=== PATIENT | male | born 1935 | race Caucasian/White ===

== ENCOUNTER → 2018-03-28 10:32 | Outpatient (CLI) | payer MEDICARE, OTHER, SELFPAY ==
[2018-03-28 11:48] LABS: Add Manual Diff / Slide Review NO; Basophils Percent Auto 1.2 % (0-2); Eosinophils Percent Auto 10.3 % (2-4); Hematocrit 41.8 % (41-53); Hemoglobin 14.1 g/dL (13.5-17.5); Lymphocytes Percent Auto 26.3 % (25-40); Mean Corpuscular HGB Conc 33.7 % (30-36); Mean Corpuscular Hemoglobin 29.8 PG (26-34); Mean Corpuscular Volume 88.5 fL (80-100); Monocytes Percent Auto 8.2 % (3-14); Neutrophils Absolute Auto 3800 /uL (3000-5900); Platelet Count 232 X10^3/uL (150-400); Red Blood Cell Count 4.72 X10^6/uL (4.5-5.9); Red Cell Distribution Width 16.5 % (11.6-14.8); White Blood Cell Count 7.1 X10^3/uL (4.5-11.0)
[2018-03-28 12:10] LABS: BUN Creatinine Ratio 21.1 (6-22); Blood Urea Nitrogen 19 mg/dL (9-20); Calcium 9.4 mg/dL (8.4-10.2); Carbon Dioxide 29 mmol/L (22-32); Chloride 103 mmol/L (98-107); Estimated Glomerular Filt Rate > 60.0 mL/min (>60); Glucose 94 mg/dL (80-110); HEMOLYSIS < 15 (0-50); Potassium 4.1 mmol/L (3.4-5.1); Sodium 141 mmol/L (137-145)
== END ==
PROVIDERS: PCP Family Medicine; Visit Provider Physician Assistant
DX: Z01.818 Encounter for other preprocedural examination (principal); B44.9 Aspergillosis, unspecified; H26.9 Unspecified cataract; J44.9 Chronic obstructive pulmonary disease, unspecified
CPT/HCPCS: 36415; 80048; 85025; 93005; 93010

== ENCOUNTER 2018-04-10 06:55 | Day surgery (SDC) | payer MEDICARE, OTHER, SELFPAY ==
[2018-04-10 07:15] VITALS: BP 142/85; PULSE 79; RESP 22; TEMP 36.4; BMI 25.9
[2018-04-10] MEDS: PROPARACAINE 0.5% OPHTH SOL 2 DROPS EYE-OP (07:23)
[2018-04-10] MEDS: CATARACT EYE COMPOUND (10 DROPS/SYRINGE) 3 DROPS EYE-OP (07:30)
--- NOTE | 2018-04-10 07:36 | PM.PREOP ---
Pre-operative Note Interval Note Pre-op Check: Yes History & Physical Reviewed by Physician Changes: No
--- NOTE | 2018-04-10 07:38 | PM.OP.1 ---
Operative Date/Time/Diagnoses Date of procedure: 04/10/18 Time of procedure: 07:39 Procedure & Clinicians Procedure: Date of service: April 10, 2018 Preoperative diagnoses: 1. Right nuclear sclerotic and cortical with posterior subcapsular changes. 2. Aspergillosis. 3. Asthma Postop diagnosis : Status post cataract surgery removal by phacoemulsification with posterior chamber intraocular lens implant. Procedure: Phacoemulsification with posterior chamber intraocular lens implant Surgeon: Sarah Townsend MD Complications: None. Specimen: None Implant:+18.5 Blood loss: None Anesthesia: Retrobulbar with monitored standby Anesthesiologist: Juan A Alford M.D. Description of procedure: Patient is an 82 year old male year old with decreased vision due to cataract which is affecting activities of daily living. Jhonathan wants surgery to improve vision. He was taken to the operating room and given IV sedation. A retrobulbar block insert consisting of 6 cc of 2% xylocaine without epinephrine mixed half and half with 0.5% Marcaine with 1 cc of hyaluronidase added is placed between the medial and lateral 1/3 of the inferior orbital rim. Lid akinesia is obtain with 1% xylocaine with epinephrine infiltrated along the lid margin. The eye is manually massaged for 30 sec, prepped using Betadine solution, and draped in the usual sterile fashion. Temporal approach was made, a 1 mm side-port incision was made at the 7:30 position. Phenylephrine 1.5% mixed with 1% xylocaine 0.2 cc was placed into the anterior chamber. Viscoat followed by Healon was then placed. A 2.6 mm clear incision with a 2.6 mm blade was placed at the 170 degree meridian. A 360 degree capsulorrhexis style capsulotomy was then performed with a cystitome needle on a Healon. Hydrodelineation and hydrodissection were performed. The phacoemulsification unit is introduced, and sculpting notice used to groove the central lens. It is then removed in chopping mode. Epi nucleus is removed with epinuclear mode and irrigation aspiration was used to remove the peripheral cortex. The posterior capsule is polished. The intraocular lens is selected, inspected, power confirmed, and placed in the posterior chamber. The pupil was constricted. The wound was stromally hydrated and tested for leaks, there was none and it was left sutureless. Vigamox 0.1 cc was placed into the anterior chamber. Kenalog 0.2 cc was placed in the superior subconjunctival space. A drop of antibiotic and was placed and the eye was patched and shielded. The patient was stable and returned to the recovery room in excellent condition. Dictated by: Sarah Townsend MD Copy to: [facility] Same procedure as scheduled: Yes
[2018-04-10] MEDS: CARBACHOL 1.5 ML VIAL INJ (08:28)
[2018-04-10] MEDS: BALANCED SALT IRRIG SOLN NO.2 15 ML IRRIG.SOLN IRR (08:28)
[2018-04-10] MEDS: CHONDROIDTIN/SOD HYALURONATE 1.05 ML SYRINGE INTRAOCULA (08:29)
[2018-04-10] MEDS: HYALURONATE SODIUM 10 MG/ML SYRINGE INJ (08:30)
[2018-04-10] MEDS: LIDOCAINE 1% W/EPI INJ 20 ML INJ (08:30)
[2018-04-10] MEDS: MOXIFLOXACIN OPHTH DROPS 3 ML BOTTLE 2 DROPS INJ (08:31)
[2018-04-10] MEDS: NEOMYCIN/POLY/DEX OPHTH OINT 1 APPLIC EYE-RIGHT (08:32)
[2018-04-10] MEDS: OFLOXACIN 0.3% OPHTH 5 ML 2 DROPS EYE-RIGHT (08:33)
[2018-04-10] MEDS: PHENYLEPHRINE/LIDOCAINE 3ML VIAL (OR) EYE-OP (08:34)
[2018-04-10] MEDS: TRIAMCINOLONE 50 MG/5 ML VIAL INJ (08:35)
[2018-04-10] MEDS: LIDOCAINE 2% 4 ML, BUPIVACAINE 0.5% (PF) 4 ML, HYALURONIDASE 150 UNIT INJ (08:36)
[2018-04-10] MEDS: BALANCED SALT IRRIG SOLN NO.2 500 ML, EPINEPHrine 1 MG IRR (08:36)
[2018-04-10 09:03] VITALS: BP 125/77; PULSE 68; RESP 16; TEMP 36.7; O2SAT 94
--- NOTE | 2018-04-10 12:29 | PM.DS.1 ---
History of Present Illness Chief complaint: 21756 RIGHT CATARACT EXTRACTION Discharge Providers Primary care physician: Cassandra Bravo DO Discharge provider: Sarah Townsend MD Exam Vital Signs (past 8 hours): - 04/10/18 07:15 04/10/18 09:03 Temperature 97.5 F L 98.1 F Pulse Rate 79 68 Respiratory Rate 22 16 Blood Pressure 142/85 H 125/77 H Pulse Oximetry 94 Oxygen Delivery Method Room Air Discharge Plan Discharge Plan Patient Disposition: Home Discharge comment: Follow post operative instruction sheet. Discharge Med Rec/Prescriptions Prescriptions: No Action Duoneb aerosol 3 ml INHALATION QID RF: 0 fluticasone-salmeterol [Advair Diskus] 500 MCG/50 MCG blister with device 1 puff INH BIDRT Qty: 0 RF: 0 montelukast [Singulair] 10 MG tablet 10 mg PO QDAY Qty: 0 RF: 0 Discharge Orders: Discharge (Order); Ordered 04/10/18 Ordered By: Sarah Townsend Visit Report/Discharge Packet Stand Alone Forms: Cataract Discharge Kristian, Surgery Discharge Discharge Data Primary Care Provider: Cassandra Bravo Attending Provider: Sarah Townsend Discharges patient from system. Discharge Date/Time: 04/10/18 09:08
== END 2018-04-10 09:08 | disposition home or self-care (01) ==
PROVIDERS: Family Provider Family Medicine; PCP Family Medicine; Visit Provider Ophthalmology
DX: H25.11 Age-related nuclear cataract, right eye (principal); J45.909 Unspecified asthma, uncomplicated; B44.9 Aspergillosis, unspecified
CPT/HCPCS: J0171; J2250; J2704; J3010; J3301; J3470

== ENCOUNTER 2018-04-24 12:54 | Day surgery (SDC) | payer MEDICARE, OTHER, SELFPAY ==
--- NOTE | 2018-04-24 08:31 | PM.PREOP ---
Pre-operative Note Interval Note Pre-op Check: Yes History & Physical Reviewed by Physician Changes: No
[2018-04-24] MEDS: PROPARACAINE 0.5% OPHTH SOL 2 DROPS EYE-OP ×2 (13:33→14:47)
[2018-04-24 13:35] VITALS: BMI 55.3
[2018-04-24 13:39] VITALS: BP 133/78; PULSE 82; RESP 16; TEMP 36.5; O2SAT 94
[2018-04-24] MEDS: CATARACT EYE COMPOUND (10 DROPS/SYRINGE) 3 DROPS EYE-OP (14:02)
[2018-04-24] MEDS: LIDOCAINE 1% W/EPI INJ 20 ML INJ (14:53)
[2018-04-24] MEDS: LIDOCAINE 2% 4 ML, BUPIVACAINE 0.5% (PF) 4 ML, HYALURONIDASE 150 UNIT INJ (14:53)
[2018-04-24] MEDS: BALANCED SALT IRRIG SOLN NO.2 15 ML IRRIG.SOLN IRR (15:13)
[2018-04-24] MEDS: HYALURONATE SODIUM 10 MG/ML SYRINGE INJ (15:14)
[2018-04-24] MEDS: CHONDROIDTIN/SOD HYALURONATE 1.05 ML SYRINGE INTRAOCULA (15:14)
[2018-04-24] MEDS: NEOMYCIN/POLY/DEX OPHTH OINT 1 APPLIC EYE-LEFT (15:15)
[2018-04-24] MEDS: MOXIFLOXACIN OPHTH DROPS 3 ML BOTTLE 2 DROPS INJ (15:15)
[2018-04-24] MEDS: OFLOXACIN 0.3% OPHTH 5 ML 2 DROPS EYE-LEFT (15:16)
[2018-04-24] MEDS: PHENYLEPHRINE/LIDOCAINE VIAL (OR) 0.2 ML EYE-OP (15:17)
[2018-04-24] MEDS: TRIAMCINOLONE 50 MG/5 ML VIAL INJ (15:17)
[2018-04-24] MEDS: BALANCED SALT IRRIG SOLN NO.2 500 ML, EPINEPHrine 1 MG IRR (15:18)
[2018-04-24 15:46] VITALS: BP 126/76; PULSE 72; RESP 16; TEMP 35.9; O2SAT 95
--- NOTE | 2018-04-24 17:12 | P.OP_ITS ---
Operative Date/Time/Diagnoses Date of procedure: 04/24/18 Time of procedure: 14:00 Procedure & Clinicians Procedure: Date of service:04/24/2018 Preoperative diagnoses: 1. Nuclear sclerotic and cortical Cataract. 2. Aspergelosis now resolved. Post operative diagnoses: 1. Cataract removed with phacoemulsification with posterior chamber intraocular lens toric style. Procedure: Phacoemulsification with posterior chamber toric intraocular lens implant Surgeon: Sarah Townsend MD Complications:none Specimen: None Implant:[id number]+19.0, axis 40 degrees. Blood loss: None Anesthesia: Retrobulbar with monitored standby Anesthesiologist: Juan A Ramires M.D. Description of procedure: Patient is an 82 year old male with decreased vision due to cataract which is affecting activities of daily living. He wants surgery to improve vision. He has taken to the operating room and given IV sedation. topical proparacaine drops were placed in indelible ink spaulding were placed at the 90 and 180 degree meridian. A retrobulbar block insert consisting of 6 cc of 2% xylocaine without epinephrine mixed half and half with 0.5% Marcaine with 1 cc of hyaluronidase added is placed between the medial and lateral 1/3 of the inferior orbital rim. Lid akinesia is obtain with 1% xylocaine with epinephrine infiltrated along the lid margin. The eye is manually massaged for 30 sec, prepped using Betadine solution, and draped in the usual sterile fashion. Temporal approach was made, a 1 mm side-port incision was made at the 12 oclock meridian. Phenylephrine 1.5% mixed with 1% xylocaine 0.2 cc was placed into the anterior chamber. Viscoat followed by Melva was then placed. A 2.6 mm clear incision with a 2.6 mm blade was placed at the 3 oclock meridian. A 360 degree capsulorrhexis style capsulotomy was then performed with a cystitome needle on a Healon. Hydrodelineation and hydrodissection were performed. The phacoemulsification unit is introduced, and sculpting notice used to groove the central lens. It is then removed in chopping mode. Epi nucleus is removed with epinuclear mode and irrigation aspiration was used to remove the peripheral cortex. The posterior capsule is polished. The intraocular lens is selected, inspected, power confirmed, and placed in the posterior chamber at the 40 degree meridian.. The pupil was not constricted. The wound was stromally hydrated and tested for leaks, there was none and was left sutureless. Vigamox 0.1 cc was placed into the anterior chamber. Kenalog 0.2 cc was placed in the superior subconjunctival space. A drop of antibiotic and was placed and the eye was patched and shielded. The patient was stable and returned to the recovery room in excellent condition. Dictated by: Sarah Townsend MD Copy to: [facility]
== END 2018-04-24 16:00 | disposition home or self-care (01) ==
LOC: OR 12:57
PROVIDERS: PCP Family Medicine; Visit Provider Ophthalmology
DX: H25.12 Age-related nuclear cataract, left eye (principal); J45.909 Unspecified asthma, uncomplicated
CPT/HCPCS: J0171; J2250; J2704; J3010; J3301; J3470; V2787

== ENCOUNTER → 2018-05-28 08:45 | Outpatient (CLI) | payer MEDICARE, OTHER, SELFPAY ==
[2018-05-30 07:21] LABS: Immunoglobulin E 2360 kU/L (< 115)
== END ==
PROVIDERS: PCP Family Medicine; Visit Provider Internal Medicine Critical Care Medicine
DX: B44.81 Allergic bronchopulmonary aspergillosis (principal)
CPT/HCPCS: 36415; 82785

== ENCOUNTER → 2018-07-22 14:32 | Outpatient (CLI) | payer MEDICARE, OTHER, SELFPAY ==
[2018-07-22 16:17] LABS: Thyroid Stimulating Hormone 1.63 uIU/mL (0.47-4.68)
== END ==
PROVIDERS: PCP Family Medicine; Visit Provider Family Medicine
DX: L65.9 Nonscarring hair loss, unspecified (principal); R21 Rash and other nonspecific skin eruption
CPT/HCPCS: 36415; 84443

== ENCOUNTER → 2018-09-12 10:16 | Outpatient (CLI) | payer MEDICARE, OTHER, SELFPAY ==
[2018-09-12 11:12] LABS: Add Manual Diff / Slide Review NO; Basophils Absolute Auto 100 /uL (0-100); Basophils Percent Auto 1.2 % (0-2); Eosinophils Absolute Auto 300 /uL (0-450); Eosinophils Percent Auto 5.1 % (2-4); Hematocrit 48.3 % (41-53); Lymphocytes Absolute Auto 1700 /uL (1100-4500); Lymphocytes Percent Auto 25.6 % (25-40); Mean Corpuscular HGB Conc 33.2 % (30-36); Mean Corpuscular Hemoglobin 29.8 PG (26-34); Mean Corpuscular Volume 89.8 fL (80-100); Monocytes Absolute Auto 500 /uL (0-900); Monocytes Percent Auto 8.1 % (3-14); Neutrophils Absolute Auto 4000 /uL (1500-7000); Platelet Count 241 X10^3/uL (150-400); Red Blood Cell Count 5.38 X10^6/uL (4.5-5.9); Red Cell Distribution Width 14.6 % (11.6-14.8); White Blood Cell Count 6.7 X10^3/uL (4.5-11.0)
[2018-09-12 11:44] LABS: Iron 118 ug/dL (49-181)
[2018-09-12 11:46] LABS: Alanine Aminotransferase 32 IU/L (21-72); Albumin 4.6 g/dL (3.5-5.0); Albumin Globulin Ratio 1.7 (1.0-2.8); Alkaline Phosphatase 49 U/L (38-126); Aspartate Aminotransferase 27 IU/L (17-59); BUN Creatinine Ratio 24.4 (6-22); Bilirubin Total 0.5 mg/dL (0.2-1.3); Blood Urea Nitrogen 22 mg/dL (9-20); Calcium 9.9 mg/dL (8.4-10.2); Carbon Dioxide 24 mmol/L (22-32); Chloride 104 mmol/L (98-107); Estimated Glomerular Filt Rate > 60.0 mL/min (>60); Globulin 2.7 g/dL (1.7-4.1); Glucose 97 mg/dL (80-110); HEMOLYSIS < 15 (0-50); Potassium 4.2 mmol/L (3.4-5.1); Sodium 139 mmol/L (137-145); Total Protein 7.3 g/dL (6.3-8.2)
[2018-09-12 12:21] LABS: Ferritin 67.2 ng/mL (17.9-464)
[2018-09-17 08:02] LABS: ANA Screen NEGATIVE (Negative); DNA Antibody Crithidia IFA NEGATIVE (Negative); Rheumatoid Factor <14 IU/mL; Sjogren Antiboday SS-A <1.0 NEG AI (<1.0 NEGATIVE); Sjogren Antiboday SS-B <1.0 NEG AI (<1.0 NEGATIVE); Sm Antibody <1.0 NEG AI (<1.0 NEGATIVE); Sm/RNP Antibody <1.0 NEG AI (<1.0 NEGATIVE)
== END ==
PROVIDERS: PCP Family Medicine; Visit Provider Physician Assistant
DX: L65.9 Nonscarring hair loss, unspecified (principal); I65.9 Occlusion and stenosis of unspecified precerebral artery
CPT/HCPCS: 36415; 80053; 82728; 83540; 85025; 86038; 86430

== ENCOUNTER → 2018-12-12 09:27 | Outpatient (CLI) | payer MEDICARE, OTHER, SELFPAY ==
[2018-12-16 13:43] LABS: Immunoglobulin E 2787 kU/L (< 115)
== END ==
PROVIDERS: PCP Family Medicine; Visit Provider Internal Medicine Pulmonary Disease
DX: B44.81 Allergic bronchopulmonary aspergillosis (principal)
CPT/HCPCS: 36415; 82785

== ENCOUNTER → 2018-12-26 09:31 | Outpatient (CLI) | payer MEDICARE, OTHER, SELFPAY ==
[2018-12-26 11:52] LABS: Prostate Specific Antigen 0.139 ng/mL (0.10-4.00)
== END ==
PROVIDERS: PCP Family Medicine; Visit Provider Urology
DX: Z85.46 Personal history of malignant neoplasm of prostate (principal)
CPT/HCPCS: 36415; 84153

== ENCOUNTER → 2019-01-02 09:25 | Outpatient (CLI) | payer MEDICARE, OTHER, SELFPAY ==
--- NOTE | 2019-01-02 | DI.RAD.S_ITS ---
PROCEDURE: XR ABDOMEN 1V INDICATIONS: KIDNEY STONE TECHNIQUE: One view of the abdomen acquired. COMPARISON: [facility], , ABDOMEN 1 VIEW, 10/11/2006, 11:43. FINDINGS: Surgical changes and devices: Multiple surgical clips are seen in right upper quadrant abdomen. Surgical clips also seen in bilateral pelvic region. Bowel: Bowel gas pattern is normal. Mild fecal stasis throughout the colon is seen. Soft tissues: Multiple calcifications are seen scattered in the region of mid to lower pole left kidney measures up to 6 mm in size in midpole of left kidney and 9 mm in size in lower pole of left kidney. No gross right-sided renal calcification is seen. 12 x 6 mm calcification is seen projecting in the region of right iliac crest a right lower quadrant. Small round calcifications are seen in bilateral lower pelvis unchanged from prior study and likely represent phleboliths. Visualized solid organ contours appear normal in size. Bones: No suspicious bony lesions. Moderate levoscoliosis centered at L2 level is seen. IMPRESSION: Multiple left-sided renal calculi. No definite right renal calcification. 12 x 6 mm oval calcification projecting in the region of the right iliac crest and is too lateral to represent renal or ureteral calcification. Phleboliths in lower pelvis. Dictated by: Angel Barksdale M.D. on 01/02/2019 at 10:29 Approved by: Angel Barksdale M.D. on 01/02/2019 at 10:32
== END ==
PROVIDERS: PCP Family Medicine; Visit Provider Urology
DX: N20.0 Calculus of kidney (principal)
CPT/HCPCS: 74018

== ENCOUNTER → 2019-07-16 09:57 | Outpatient (CLI) | payer MEDICARE, OTHER, SELFPAY ==
[2019-07-19 10:14] LABS: Immunoglobulin E 2494 kU/L (< 115)
== END ==
PROVIDERS: Family Provider Family Medicine; PCP Family Medicine; Visit Provider Internal Medicine Pulmonary Disease
DX: B44.81 Allergic bronchopulmonary aspergillosis (principal)
CPT/HCPCS: 36415; 82785

== ENCOUNTER → 2019-09-22 10:50 | Outpatient (CLI) | payer MEDICARE, OTHER, SELFPAY ==
[2019-09-22 11:53] LABS: Prostate Specific Antigen 0.153 ng/mL (0.10-4.00)
== END ==
PROVIDERS: Family Provider Family Medicine; PCP Family Medicine; Referring Provider Urology; Visit Provider Urology
DX: Z85.46 Personal history of malignant neoplasm of prostate (principal)
CPT/HCPCS: 36415; 84153

== ENCOUNTER → 2020-01-14 09:23 | Outpatient (CLI) | payer MEDICARE, OTHER, SELFPAY ==
[2020-01-17 20:24] LABS: Immunoglobulin E 2029 IU/mL (6-495)
== END ==
PROVIDERS: Family Provider Family Medicine; PCP Family Medicine; Referring Provider Internal Medicine Pulmonary Disease; Visit Provider Internal Medicine Pulmonary Disease
DX: B44.81 Allergic bronchopulmonary aspergillosis (principal)
CPT/HCPCS: 36415; 82785

== ENCOUNTER → 2020-03-15 12:35 | Outpatient (CLI) | payer MEDICARE, OTHER, SELFPAY ==
[2020-03-15 13:57] LABS: Prostate Specific Antigen < 0.064 ng/mL (0.10-4.00)
== END ==
PROVIDERS: Family Provider Family Medicine; PCP Physician Assistant; Referring Provider Urology; Visit Provider Urology
DX: Z85.46 Personal history of malignant neoplasm of prostate (principal)
CPT/HCPCS: 36415; 84153

== ENCOUNTER → 2020-11-25 15:29 | Outpatient (CLI) | payer MEDICARE, OTHER, SELFPAY ==
[2020-11-29 06:57] LABS: Immunoglobulin E 3038 IU/mL (6-495)
== END ==
PROVIDERS: Family Provider Family Medicine; PCP Physician Assistant; Referring Provider Internal Medicine Pulmonary Disease; Visit Provider Internal Medicine Pulmonary Disease
DX: B44.81 Allergic bronchopulmonary aspergillosis (principal)
CPT/HCPCS: 36415; 82785

== ENCOUNTER → 2021-05-31 09:03 | Outpatient (CLI) | payer MEDICARE, OTHER, SELFPAY | PROVIDERS: Family Provider Family Medicine; PCP Physician Assistant; Referring Provider Urology; Visit Provider Urology | DX: Z85.46 Personal history of malignant neoplasm of prostate (principal) | CPT/HCPCS: 36415; 84153 ==

== ENCOUNTER → 2021-10-11 09:04 | Outpatient (CLI) | payer MEDICARE, OTHER, SELFPAY ==
--- NOTE | 2021-10-11 | DI.ECHO.S_ITS ---
[place] [facility]---------+ [facility] +---------+ : : [address] : : : : [id number] : : : : Phone: [phone]+ Echocardiogram Report + + :Name: GIANNA DICK R Study Date: 10/11/2021 Height: 69 in : :[facility] ReadingLocation: Weight: 165 lb : : Gender: Male BSA: 1.9 m2 : :: 1935 Age: 85 yrs BP: 158/97 mmHg: :Reason For Study: LOCALIZED EDMEA : :Ordering Physician: JACOB, : :GIANNA Performed By: Tawanna Huang : :Referring: GIANNA JAMES : + + Interpretation Summary The left ventricle is normal in size and wall thickness. The ejection fraction is estimated to be 60-65%. Diastolic dysfuncitn, grade I The left atrium is severely dilated. The right ventricle is normal in size and function. The IVC is of normal diameter and collapses greater than 50% with a sniff. This suggests a low right atrial pressure of 3 mm Hg. No significant valvular disease. No prior studies available for comparison. Procedure: A two-dimensional transthoracic echocardiogram with color flow and Doppler was performed. The study quality was technically good. There is no prior echocardiogram noted for this patient. The patient was in sinus rhythm with heart rates between 70-85 bpm during the exam. Left Ventricle: The left ventricle is normal in size and wall thickness. The ejection fraction is estimated to be 60-65%. Left ventricular wall motion is normal. Diastolic dysfuncitn, grade I. Right Ventricle: The right ventricle is normal in size and function. Atria: The left atrium is severely dilated. The right atrium is mildly dilated. There is no Doppler evidence for an interatrial shunt. Mitral Valve: The mitral valve is normal in structure and function. There is trace mitral regurgitation. Aortic Valve: The aortic valve is trileaflet. The aortic valve opens well. There is no aortic valve stenosis. No aortic regurgitation is present. Tricuspid Valve: The tricuspid valve is normal in structure and function. There is trace tricuspid regurgitation. Pulmonic Valve: The pulmonic valve leaflets are thin and pliable; valve motion is normal. There is trace pulmonic regurgitation. Great Vessels: The aortic root is normal size. The dimensions of the ascending aorta are normal. The IVC is of normal diameter and collapses greater than 50% with a sniff. This suggests a low right atrial pressure of 3 mm Hg. Pericardium/ Pleura There is no pericardial effusion. There is no pleural effusion. MMode/2D Measurements & Calculations LVIDd: 5.1 cm LVOT diam: 2.2 cm LVIDs: 3.5 cm Ao root diam: 3.8 cm FS: 32.4 % asc Aorta Diam: 3.3 cm IVSd: 0.93 cm Ao Arch Diam (Prox Trans): 2.9 cm LVPWd: 0.93 cm LV magana. diameter/BSA (cm/m^2): 2.7 LV sys. diameter/BSA (cm/m^2): 1.8 LA A2 area: 28.3 cm2 RA long axis: 6.0 cm LA A4 area: 22.4 cm2 RA area: 22.8 cm2 LA length (vol): 5.9 cm RA vol: 73.2 ml LA vol: 90.4 ml RA : 38.4 ml/m2 LA vol index: 47.5 ml/m2 IVC diam: 1.8 cm RVD1 (basal): 3.5 cm RVD2 (mid): 3.6 cm TAPSE: 2.2 cm Doppler Measurements & Calculations Ao V2 max: 137.0 cm/sec LVOT Max Mukesh: 110.8 cm/sec Ao V2 mean: 97.5 cm/sec LV V1 max P.9 mmHg Ao max P.5 mmHg LV V1 VTI: 25.9 cm Ao mean P.1 mmHg ANNAMARIA(I,D): 3.2 cm2 Ao V2 VTI: 31.9 cm ANNAMARIA(V,D): 3.2 cm2 sev ratio: 0.81 ANNAMARIA indexed to BSA (cm^2/m^2): 1.7 MV E max mukesh: 75.0 cm/sec PA V2 max: 77.2 cm/sec MV A max mukesh: 106.8 cm/sec PA V2 mean: 51.4 cm/sec MV E/A: 0.70 PA mean P.2 mmHg Med Peak E' Mukesh: 5.2 cm/sec PA pr(Accel): 22.5 mmHg E/E' med: 14.5 Lat Peak E' Mukesh: 8.9 cm/sec E/E' lat: 8.4 E/e' average: 11.5 MV dec time: 0.18 sec [facility] 101.5 ml Reading Physician:NAYLA
== END ==
PROVIDERS: Family Provider Family Medicine; PCP Physician Assistant; Referring Provider Physician Assistant; Visit Provider Internal Medicine
DX: R60.0 Localized edema (principal)
CPT/HCPCS: 93306

== ENCOUNTER → 2021-11-24 08:45 | Outpatient (CLI) | payer MEDICARE, OTHER, SELFPAY ==
[2021-11-24 10:35] LABS: BUN Creatinine Ratio 23.5 (6-22); Blood Urea Nitrogen 23 mg/dL (9-20); Carbon Dioxide 29 mmol/L (22-32); Chloride 102 mmol/L (98-107); Estimated Glomerular Filt Rate > 60.0 mL/min (>60); Glucose 96 mg/dL (80-110); HEMOLYSIS < 15 (0-50); Potassium 3.9 mmol/L (3.4-5.1); Sodium 139 mmol/L (137-145)
[2021-11-27 16:09] LABS: Immunoglobulin E 2581 IU/mL (6-495)
== END ==
PROVIDERS: Family Provider Family Medicine; PCP Physician Assistant; Referring Provider Internal Medicine Cardiovascular Disease; Visit Provider Internal Medicine Cardiovascular Disease
DX: I10 Essential (primary) hypertension (principal); B44.81 Allergic bronchopulmonary aspergillosis
CPT/HCPCS: 36415; 80048; 82785

== ENCOUNTER → 2022-04-06 14:34 | Outpatient (CLI) | payer MEDICARE, OTHER, SELFPAY ==
--- NOTE | 2022-04-06 14:38 | DI.RAD.S_ITS ---
PROCEDURE: XR ABDOMEN 1V INDICATIONS: Kidney stones TECHNIQUE: One view of the abdomen acquired. COMPARISON: [facility], CR, XR ABDOMEN 1V, 01/02/2019, 9:32. FINDINGS: Surgical changes and devices: Right upper quadrant surgical clips. Lower pelvic surgical clips. Bowel: Bowel gas pattern is normal. Soft tissues: No suspicious abdominal calcifications. Visualized solid organ contours appear normal in size. Multiple calcifications again seen projected over the left kidney, largest measuring roughly 1.1 cm. No definite calcifications projected over the left kidney. Chronic right lower quadrant calcification unchanged. Multiple pelvic phleboliths. Bones: No suspicious bony lesions. IMPRESSION: Multiple calcifications again seen projected over the left kidney, largest measuring 1.1 cm. Dictated by: Shiva Sanchez [facility] Interpreted: Raquel Nava MD on 04/06/2022 at 15:35 Transcribed by: RYLAND on 04/06/2022 at 15:36 Approved by: Raquel Nava M.D. on 04/06/2022 at 17:40
== END ==
PROVIDERS: Family Provider Family Medicine; PCP Physician Assistant; Referring Provider Urology; Visit Provider Urology
DX: N20.0 Calculus of kidney (principal)
CPT/HCPCS: 74018

== ENCOUNTER → 2023-05-16 13:25 | Outpatient (CLI) | payer MEDICARE, OTHER, SELFPAY ==
[2023-05-16 14:10] LABS: Alanine Aminotransferase 20 IU/L (<50); Albumin 3.6 g/dL (3.5-5.0); Albumin Globulin Ratio 1.2 (1.0-2.8); Alkaline Phosphatase 59 U/L (38-126); Aspartate Aminotransferase 41 IU/L (17-59); Bilirubin Total 0.4 mg/dL (0.2-1.3); Blood Urea Nitrogen 17 mg/dL (9-20); Calcium 8.4 mg/dL (8.4-10.2); Carbon Dioxide 30 mmol/L (22-32); Chloride 101 mmol/L (98-107); Estimated Glomerular Filt Rate > 60 mL/min (>60); Globulin 2.9 g/dL (1.7-4.1); Glucose 101 mg/dL (80-110); HEMOLYSIS 16 (0-50); Potassium 3.3 mmol/L (3.4-5.1); Sodium 137 mmol/L (137-145); Total Protein 6.5 g/dL (6.3-8.2)
== END ==
PROVIDERS: Family Provider Family Medicine; PCP Physician Assistant; Visit Provider Nurse Practitioner Family
DX: U07.1 COVID-19 (principal)
CPT/HCPCS: 80053

== ENCOUNTER → 2023-06-14 07:44 | Outpatient (CLI) | payer MEDICARE, OTHER, SELFPAY | PROVIDERS: Referring Provider Anesthesiology; Visit Provider Anesthesiology | DX: B44.81 Allergic bronchopulmonary aspergillosis (principal); J98.8 Other specified respiratory disorders | CPT/HCPCS: 94010; 94618; 94729 ==

== ENCOUNTER 2024-01-12 17:39 | Inpatient (IN) | payer MEDICARE, OTHER, SELFPAY ==
[2024-01-12] VITALS (15 sets, daily range): BP systolic 122–162; BP diastolic 59–89; PULSE 87–113; RESP 16–40; TEMP 36.4–36.9; O2SAT 88–93; BMI 24.3
--- NOTE | 2024-01-12 17:53 | DI.RAD.S_ITS ---
PROCEDURE: XR CHEST 1V INDICATIONS: Shortness of breath TECHNIQUE: One view of the chest was acquired. COMPARISON: [facility], CHEST 2 VIEW, 03/14/2017, 13:14. [facility], CHEST 2 VIEW, 07/23/2012, 11:05. FINDINGS: Surgical changes and devices: None. Lungs and pleura: No focal pulmonary consolidations. Bullous changes within the right lower lung field. Prominent interstitial markings throughout and scarring at the bilateral lung bases, likely emphysematous or fibrotic changes.. No pleural effusions or pneumothorax. Mediastinum: Mediastinal contours appear normal. Heart size is normal. Bones and chest wall: No suspicious bony lesions. Overlying soft tissues appear unremarkable. IMPRESSION: No focal pulmonary consolidations. Findings concerning for COPD. Bullous changes at the right base. Dictated by: Valentino Jacques M.D. on 01/12/2024 at 17:22 Approved by: Valentino Jacques M.D. on 01/12/2024 at 17:24
[2024-01-12] MEDS: ALBUTEROL/IPRATROPIUM 3 ML AMPUL INH ×2 (18:00→22:10)
--- NOTE | 2024-01-12 18:01 | ED_ITS ---
HPI - SOB/Dyspnea General Chief Complaint: Shortness of Breath/Dyspnea Stated Complaint: Covid t-7 Time Seen by Provider: 01/12/24 17:52 Source: patient, RN notes reviewed and old records reviewed Mode of arrival: Ambulatory Limitations: no limitations History of Present Illness HPI Narrative: 88-year-old male with history of COPD, allergic bronchopulmonary aspergillosis, dyslipidemia, prior prostate cancer who presents with complaint of subjective fevers, fatigue, increasing shortness of breath. Patient states chest pain no nausea or vomiting no other GI or urinary symptoms. Patient uses Advair daily, uses DuoNebs every 4 hours scheduled and states that they have not been as helpful. Patient symptoms continued to worsen over the past week with symptoms started. History of appendectomy, cholecystectomy, hernia repair, prostatectomy, tonsillectomy, TURP. He denies any allergies to medications. No prior tobacco use, occasional alcohol, no recreational drugs. Related Data Home Medications Medication Instructions Recorded Confirmed fluticasone 500 mcg-salmeterol 50 1 puff INH BIDRT ##0 12/29/10 01/12/24 mcg/dose blistr powdr for inhalation (Advair Diskus) ipratropium 0.5 mg-albuterol 3 mg ml inhalation 05/16/23 01/11/24 (2.5 mg base)/3 mL nebulization soln irbesartan 150 mg tablet (Avapro) 150 mg PO DAILY 05/16/23 01/11/24 amlodipine 2.5 mg tablet 2.5 mg PO BEDTIME 01/12/24 01/12/24 Allergies Allergy/AdvReac Type Severity Reaction Status Date / Time No Known Drug Allergies Allergy Verified 01/12/24 17:54 Review of Systems Review of Systems ROS Unobtainable: All systems reviewed & are unremarkable except as noted in HPI and below Patient History Medical History (Updated 01/12/24 @ 20:32 by Loi Barger MD) HTN (hypertension) ABPA (allergic bronchopulmonary aspergillosis) (Unknown) Allergic rhinitis (Unknown) Hyperlipemia (Unknown) Hemorrhoids (Unknown) Prostate cancer (1997) Kidney stones (07/2009) COPD (chronic obstructive pulmonary disease) (Unknown) Surgical History Hx of cholecystectomy (2007) Hx of appendectomy (2010) Hx of prostatectomy (1997) Hx of tonsillectomy (1954) Hx of hernia repair (2009) Hx of transurethral resection of prostate (1997) Social History household members: none Smoking Status: Never smoker alcohol intake: current substance use type: does not use Smoking Status: Never smoker Substance Use Type: does not use Exam Narrative Exam Narrative: GEN: Thin elderly male, alert and oriented x 3, patient appears to be in moderate distress. HEENT: Atraumatic, pupils are equal round reactive to light, extraocular movements are intact, nares are clear, there is no conjunctival pallor. Throat is clear without any exudates, erythema, tonsillar enlargement or uvular deviation HEART: Tachycardic but Regular rate and rhythm without murmur, clicks, rubs. LUNGS:Lungs decreased bilaterally, positive for tachypnea, no wheezes, rales, mild crackles at base, chest moves symmetrically, speaking in full sentences. ABD:bowel sounds normal, soft, non-tender, no guarding, rebound, rigidity, no masses noted, no hepatosplenomegaly :No CVA tenderness. MSCL: Non-tender, no muscle atrophy, muscles strength 5/5 upper and lower extremities, full range of motion, normal gait NEURO:CN 2-12 intact, sensation normal Initial Vital Signs Initial Vital Signs: Vital Signs Pulse Rate 113 H 01/12/24 17:45 Pulse Oximetry 89 L 01/12/24 17:45 Oxygen Delivery Method Room Air 01/12/24 17:45 Course Orders Ordered: Acetaminophen (Acetaminophen 325 Mg Tablet) 650 mg PO Q6H PRN PRN Reason: Fever/Mild Pain (1-3) Al Hydrox/Mg Hydrox/Simethicone (Mag Hydrox/Alum/Simeth 30 Ml Udc) 30 ml PO Q6HR PRN PRN Reason: Dyspepsia Albuterol (Albuterol 2.5 Mg/3 Ml Neb (Adult)) 2.5 mg INH [id number] PRN PRN Reason: Shortness Of Breath Last Admin: 01/13/24 04:36 Dose: 2.5 mg Documented By: Admin: 01/13/24 00:55 Dose: 2.5 mg Documented By: MR Albuterol/Ipratropium (Albuterol/Ipratropium 3 Ml Ampul) 3 ml INH RTTID [facility] Last Admin: 01/12/24 22:10 Dose: 3 ml Documented By: MR Amlodipine Besylate (Amlodipine 5 Mg Tablet) 2.5 mg PO DAILY [facility] Budesonide (Budesonide 0.5 Mg/2 Ml Neb) 0.5 mg INH RTBID [facility] Docusate Sodium (Docusate 100 Mg Capsule) 100 mg PO BID [facility] Last Admin: 01/12/24 22:01 Dose: 100 mg Documented By: Enoxaparin Sodium (Enoxaparin 40 Mg/0.4 Ml Syringe) 40 mg SUBCUT DAILY [facility] Sodium Chloride (Normal Saline 0.9%) 1,000 mls @ 150 mls/hr IV CONT [facility] Last Admin: 01/13/24 05:30 Dose: 150 mls/hr Documented By: Infusion: 01/13/24 04:16 Dose: Infused Documented By: Admin: 01/12/24 21:35 Dose: 150 mls/hr Documented By: JC Losartan Potassium (Losartan 50 Mg Tablet) 50 mg PO DAILY [facility] Naloxone HCl (Naloxone 0.4 Mg/Ml Vial) 0.2 mg IV Q2MIN PRN PRN Reason: Opiate Reversal Ondansetron HCl (Ondansetron 4 Mg Odt) 4 mg PO Q8HR PRN PRN Reason: Nausea And Vomiting Prednisone (Prednisone 20 Mg Tablet) 40 mg PO DAILY [facility] Sennosides (Sennosides 8.6 Mg Tablet) 17.2 mg PO BEDTIME PRN PRN Reason: Constipation Last Admin: 01/12/24 22:01 Dose: 17.2 mg Documented By: JC Discontinued Medications Albuterol/Ipratropium (Albuterol/Ipratropium 3 Ml Ampul) 3 ml INH NOW ONE Stop: 01/12/24 17:53 Last Admin: 01/12/24 18:00 Dose: 3 ml Documented By: DELMA Methylprednisolone (Methylprednisolone 125 Mg/2 Ml Vial) 125 mg IV NOW ONE Stop: 01/12/24 18:08 Last Admin: 01/12/24 18:24 Dose: 125 mg Documented By: MARKO Vital Signs Vital signs: Vital Signs - 8 hr 01/12/24 17:45 01/12/24 17:46 01/12/24 17:46 Temperature Pulse Rate 113 H 110 H Respiratory Rate Blood Pressure 156/83 H Pulse Oximetry 89 L 92 Oxygen Delivery Method Room Air Nasal Cannula Oxygen Flow Rate 2 01/12/24 17:51 01/12/24 18:00 01/12/24 18:00 Temperature 98.4 F Pulse Rate 111 H 110 H 100 H Respiratory Rate 36 H 32 H 30 H Blood Pressure 156/83 H Pulse Oximetry 88 L 92 92 Oxygen Delivery Method Room Air Nasal Cannula Oxygen Flow Rate 2 01/12/24 18:00 01/12/24 18:30 01/12/24 18:43 Temperature Pulse Rate 97 H 97 H Respiratory Rate 40 H 32 H Blood Pressure 138/72 Pulse Oximetry 93 93 Oxygen Delivery Method Oxygen Flow Rate 01/12/24 18:43 Temperature Pulse Rate Respiratory Rate Blood Pressure 131/70 Pulse Oximetry Oxygen Delivery Method Oxygen Flow Rate MDM - SOB/Dyspnea Lab Data 01/12/24 17:50 01/12/24 17:50 Labs: Lab Results 01/12/24 01/12/24 Range/Units 17:50 18:04 WBC 13.7 H (4.5-11.0) X10^3/uL RBC 5.15 (4.5-5.9) X10^6/uL Hgb 15.2 (13.5-17.5) g/dL Hct 45.9 (41-53) % MCV 89.2 (80-100) fL MCH 29.6 (26-34) PG MCHC 33.2 (30-36) % RDW 14.5 (11.6-14.8) % Plt Count 373 (150-400) X10^3/uL Neut % (Auto) 82.9 H (50-75) % Lymph % (Auto) 9.3 L (25-40) % [place] % (Auto) 6.9 (3-14) % Eos % (Auto) 0.3 L (2-4) % Baso % (Auto) 0.6 (0-2) % Neut # (Auto) 90660 H (6934-1374) /uL Lymph # (Auto) 1300 (0494-1141) /uL [place] # (Auto) 900 (0-900) /uL Eos # (Auto) 0 (0-450) /uL Baso # (Auto) 100 (0-100) /uL PT 12.4 (9.4-12.5) SECONDS INR 1.1 (0.9-1.3) APTT 33 (25.1-36.5) SECONDS Sodium 139 (137-145) mmol/L Potassium 4.0 (3.4-5.1) mmol/L Chloride 104 (98-107) mmol/L Carbon Dioxide 23 (22-32) mmol/L BUN 12 (9-20) mg/dL Creatinine 0.88 (0.66-1.25) mg/dL Estimated GFR > 60 (>60) mL/min BUN/Creatinine Ratio 13.6 (6-22) Glucose 107 (80-110) mg/dL Lactate 1.7 (0.7-2.1) mmol/L Calcium 9.0 (8.4-10.2) mg/dL Total Bilirubin 1.1 (0.2-1.3) mg/dL AST 26 (17-59) IU/L ALT 18 (<50) IU/L Alkaline Phosphatase 74 (38-126) U/L Total Creatine Kinase 119 (55-170) U/L Troponin I < 0.012 (0.01-0.034) ng/mL NT-Pro-B Natriuret Pep 223 (<450) pg/mL Total Protein 7.7 (6.3-8.2) g/dL Albumin 4.2 (3.5-5.0) g/dL Globulin 3.5 (1.7-4.1) g/dL Albumin/Globulin Ratio 1.2 (1.0-2.8) Procalcitonin 0.112 (<0.5) ng/mL Chlamy pneumoniae PCR Not detected (Not Detect) Adenovirus (PCR) Not detected (Not Detect) B.parapertussis DNA PCR Not detected (Not Detecte) Coronavirus OC43 (PCR) Not detected (Not Detect) Coronavirus HKU1 (PCR) Not detected (Not Detect) Coronavirus 229E (PCR) Not detected (Not Detect) SARS-CoV-2 (PCR) Not detected (Not Detecte) Coronavirus NL63 (PCR) Not detected (Not Detect) Human Metapneumovir PCR Detected H (Not Detect) Influenza Type A (PCR) Not detected (Not Detect) Influenza Type B (PCR) Not detected (Not Detect) M. pneumoniae (PCR) Not detected (Not Detect) Parainfluenza 1 (PCR) Not detected (Not Detect) Parainfluenza 2 (PCR) Not detected (Not Detect) Parainfluenza 3 (PCR) Not detected (Not Detect) Parainfluenza 4 (PCR) Not detected (Not Detect) RSV (PCR) Not detected (Not Detect) Entero/Rhino (PCR) Not detected (Not Detect) Imaging Data Chest x-ray: Radiologist's Impression: [address] [address] XRay Report Signed Patient: Morales Pack MR#: [id number] : 1935 Acct:[id number] Age/Sex: 88 / M Date of Service: 01/12/24 Loc: ED Accession Number: [id number] Procedure: XR chest 1V Ordering Provider: Elvira Pinedo D.O. PROCEDURE: XR CHEST 1V INDICATIONS: Shortness of breath TECHNIQUE: One view of the chest was acquired. COMPARISON: [facility], CHEST 2 VIEW, 03/14/2017, 13:14. [facility], CHEST 2 VIEW, 07/23/2012, 11:05. FINDINGS: Surgical changes and devices: None. Lungs and pleura: No focal pulmonary consolidations. Bullous changes within the right lower lung field. Prominent interstitial markings throughout and scarring at the bilateral lung bases, likely emphysematous or fibrotic changes.. No pleural effusions or pneumothorax. Mediastinum: Mediastinal contours appear normal. Heart size is normal. Bones and chest wall: No suspicious bony lesions. Overlying soft tissues appear unremarkable. IMPRESSION: No focal pulmonary consolidations. Findings concerning for COPD. Bullous changes at the right base. Dictated by: Valentino Jacques M.D. on 01/12/2024 at 17:22 Approved by: Valentino Jacques M.D. on 01/12/2024 at 17:24 ECG Data Attestation: I personally reviewed and interpreted this ECG as follows: Interpretation: Sinus tachycardia rate of 3 MS 208 QRS 86 QTC of 432. Biatrial enlargement, rightward axis. Patient does not have any priors for comparison. Nonspecific change. MDM Narrative Medical decision making narrative: 88-year-old male with known lung disease, asthma/aspergillosis, COPD who presents with likely recent viral illness for the past week and increasing shortness of breath. Patient has a new O2 requirement, he is tachycardic and tachypneic. He is speaking in full sentences. White count of 13.7 leftward shift normal platelets of 373 and hemoglobin of 15. INR is 1., sodium is 139 potassium is 4 chloride 104 CO2 is 23 with a BUN 12 creatinine of 0.88, glucose of 107 lactate of 1.7 with LFTs negative troponin is less than 0.12 and a BNP of 2 to 3. Procalcitonin is 0.112. Respiratory panel is positive for human metapneumovirus. Chest x-ray shows no focal pulmonary consolidation findings concerning for COPD bullous changes at the right base. EKG EKG shows tachycardia. Patient has not echo from September of 2021 which shows an EF of 60-65% normal left ventricular wall motion, diastolic dysfunction grade 1 with a right size that was normal size and function but left atrium severely dilated. No significant valve stenosis other than trace mitral regurg and trace tricuspid regurg as well as pulmonology. No pericardial effusion or pleural effusion on that echo. On recheck, patient does feel improved. He is running about 90-91% on 2 L nasal cannula he states normally he runs 92-94% on room air. He does look more comfortable he is able to lay flat. He still has some tachypnea present. His heart rate has improved. Spoke with Dr. Barger who accepts for observation. Discharge Plan Departure Patient Disposition: Admitted as Observation Clinical Impression: Acute hypoxemic respiratory failure, Infection due to human metapneumovirus (hMPV) Admit Date/Time: 01/12/24 20:17 Admit Provider: Loi Chatman
[2024-01-12 18:10] LABS: Add Manual Diff / Slide Review NO; Basophils Absolute Auto 100 /uL (0-100); Basophils Percent Auto 0.6 % (0-2); Eosinophils Absolute Auto 0 /uL (0-450); Eosinophils Percent Auto 0.3 % (2-4); Hematocrit 45.9 % (41-53); Hemoglobin 15.2 g/dL (13.5-17.5); Lymphocytes Absolute Auto 1300 /uL (1100-4500); Lymphocytes Percent Auto 9.3 % (25-40); Mean Corpuscular HGB Conc 33.2 % (30-36); Mean Corpuscular Hemoglobin 29.6 PG (26-34); Mean Corpuscular Volume 89.2 fL (80-100); Monocytes Absolute Auto 900 /uL (0-900); Monocytes Percent Auto 6.9 % (3-14); Neutrophils Absolute Auto 11400 /uL (1500-7000); Neutrophils Percent Auto 82.9 % (50-75); Platelet Count 373 X10^3/uL (150-400); Red Blood Cell Count 5.15 X10^6/uL (4.5-5.9); Red Cell Distribution Width 14.5 % (11.6-14.8); White Blood Cell Count 13.7 X10^3/uL (4.5-11.0)
[2024-01-12 18:17] LABS: INR 1.1 (0.9-1.3); Prothrombin Time 12.4 SECONDS (9.4-12.5)
--- NOTE | 2024-01-12 18:19 | RT ---
pt michelle neb tx well,on 2 lpm nc, mild sob noted
[2024-01-12 18:22] LABS: Creatine Kinase 119 U/L (55-170)
[2024-01-12 18:24] LABS: Alanine Aminotransferase 18 IU/L (<50); Albumin 4.2 g/dL (3.5-5.0); Albumin Globulin Ratio 1.2 (1.0-2.8); Alkaline Phosphatase 74 U/L (38-126); Aspartate Aminotransferase 26 IU/L (17-59); BUN Creatinine Ratio 13.6 (6-22); Bilirubin Total 1.1 mg/dL (0.2-1.3); Blood Urea Nitrogen 12 mg/dL (9-20); Carbon Dioxide 23 mmol/L (22-32); Chloride 104 mmol/L (98-107); Estimated Glomerular Filt Rate > 60 mL/min (>60); Globulin 3.5 g/dL (1.7-4.1); Glucose 107 mg/dL (80-110); HEMOLYSIS < 15 (0-50); Lactate (Lactic Acid) 1.7 mmol/L (0.7-2.1); Sodium 139 mmol/L (137-145); Total Protein 7.7 g/dL (6.3-8.2)
[2024-01-12] MEDS: methylPREDNISolone 125 MG/2 ML VIAL IV (18:24)
[2024-01-12 18:26] LABS: PTT Partial Thromboplastin Tim 33 SECONDS (25.1-36.5)
[2024-01-12 18:33] LABS: NT-proBNP (BNP-Adult 18+) 223 pg/mL (<450)
[2024-01-12 18:35] LABS: Troponin I < 0.012 ng/mL (0.01-0.034)
[2024-01-12 18:40] LABS: Procalcitonin 0.112 ng/mL (<0.5)
[2024-01-12 19:04] LABS: Adenovirus Not Detected (Not Detect); B. parapertussis Not Detected (Not Detecte); Bordetella pertussis Not Detected (Not Detect); Chlamydophila pneumoniae Not Detected (Not Detect); Coronavirus 229E Not Detected (Not Detect); Coronavirus HKU1 Not Detected (Not Detect); Coronavirus NL 63 Not Detected (Not Detect); Coronavirus OC43 Not Detected (Not Detect); Human Metapneumovirus Detected (Not Detect); Human Rhinovirus/Enterovirus Not Detected (Not Detect); Influenza A Not Detected (Not Detect); Influenza B Not Detected (Not Detect); Mycoplasma pneumoniae Not Detected (Not Detect); Parainfluenza Virus 1 Not Detected (Not Detect); Parainfluenza Virus 2 Not Detected (Not Detect); Parainfluenza Virus 3 Not Detected (Not Detect); Parainfluenza Virus 4 Not Detected (Not Detect); Respiratory Syncytial Virus Not Detected (Not Detect); SARS- CoV-2 Not Detected (Not Detecte)
--- NOTE | 2024-01-12 20:28 | PM.HP.1 ---
History of Present Illness History of Present Illness Date Patient Seen: 01/12/24 Time Patient Seen: 21:30 Chief complaint: Shortness of breath Narrative: 88 y/o with PMH of bulous emphysema, on Advair and DuoNeb, and history of pulmonary aspergilosis, presented with worsening shortness of breath and diagnosed with COPD exacerbation and metapneumoviral bronchitis. Hypoxemic, tachypneic. Leukocytosis. CXR w/o infiltrates with RLL bulae. PFSH Medical History (Updated 01/12/24 @ 20:32 by Loi Barger MD) HTN (hypertension) ABPA (allergic bronchopulmonary aspergillosis) (Unknown) Allergic rhinitis (Unknown) Hyperlipemia (Unknown) Hemorrhoids (Unknown) Prostate cancer (1997) Kidney stones (07/2009) COPD (chronic obstructive pulmonary disease) (Unknown) Surgical History Hx of cholecystectomy (2007) Hx of appendectomy (2010) Hx of prostatectomy (1997) Hx of tonsillectomy (1954) Hx of hernia repair (2009) Hx of transurethral resection of prostate (1997) Social History household members: none Smoking Status: Never smoker alcohol intake: current substance use type: does not use Meds Home Medications and Allergies Home Medications Medication Instructions Recorded Confirmed Type fluticasone 500 mcg-salmeterol 50 1 puff INH BIDRT ##0 12/29/10 01/12/24 History mcg/dose blistr powdr for inhalation (Advair Diskus) ipratropium 0.5 mg-albuterol 3 mg ml inhalation 05/16/23 01/11/24 History (2.5 mg base)/3 mL nebulization soln irbesartan 150 mg tablet (Avapro) 150 mg PO DAILY 05/16/23 01/11/24 History amlodipine 2.5 mg tablet 2.5 mg PO BEDTIME 01/12/24 01/12/24 History Allergies Allergy/AdvReac Type Severity Reaction Status Date / Time No Known Drug Allergies Allergy Verified 01/12/24 17:54 Review of Systems Constitutional Comments: w/o fever Cardiovascular Comments: wo chest pain Respiratory Comments: short of breath, worsened over the past 4-5 days Exam Vital Signs (past 8 hours): - 01/12/24 17:45 01/12/24 17:46 01/12/24 17:46 Temperature Pulse Rate 113 H 110 H Respiratory Rate Blood Pressure 156/83 H Pulse Oximetry 89 L 92 Oxygen Delivery Method Room Air Nasal Cannula Oxygen Flow Rate 2 01/12/24 17:51 01/12/24 18:00 01/12/24 18:00 Temperature 98.4 F Pulse Rate 111 H 110 H 100 H Respiratory Rate 36 H 32 H 30 H Blood Pressure 156/83 H Pulse Oximetry 88 L 92 92 Oxygen Delivery Method Room Air Nasal Cannula Oxygen Flow Rate 2 01/12/24 18:00 01/12/24 18:30 01/12/24 18:43 Temperature Pulse Rate 97 H 97 H Respiratory Rate 40 H 32 H Blood Pressure 138/72 Pulse Oximetry 93 93 Oxygen Delivery Method Oxygen Flow Rate 01/12/24 18:43 01/12/24 20:23 Temperature Pulse Rate 97 H Respiratory Rate 20 Blood Pressure 131/70 122/59 L Pulse Oximetry 93 Oxygen Delivery Method Nasal Cannula Oxygen Flow Rate 2 Oxygen Delivery Method Nasal Cannula Oxygen Flow Rate 2 Const Other: in no distress HENMT Other: normocephalic Resp Other: limited air flow b/l, not wheezy Cardio Other: RRR GI Other: w/o distension Extrem Other: w/o swelling Psych Other: appropriate mood Objective Labs 01/12/24 17:50 01/12/24 17:50 Labs: Laboratory Results - last 24 hr 01/12/24 01/12/24 17:50 18:04 WBC 13.7 H RBC 5.15 Hgb 15.2 Hct 45.9 MCV 89.2 MCH 29.6 MCHC 33.2 RDW 14.5 Plt Count 373 Neut % (Auto) 82.9 H Lymph % (Auto) 9.3 L [place] % (Auto) 6.9 Eos % (Auto) 0.3 L Baso % (Auto) 0.6 Neut # (Auto) 13410 H Lymph # (Auto) 1300 [place] # (Auto) 900 Eos # (Auto) 0 Baso # (Auto) 100 PT 12.4 INR 1.1 APTT 33 Sodium 139 Potassium 4.0 Chloride 104 Carbon Dioxide 23 BUN 12 Creatinine 0.88 Estimated GFR > 60 BUN/Creatinine Ratio 13.6 Glucose 107 Lactate 1.7 Calcium 9.0 Total Bilirubin 1.1 AST 26 ALT 18 Alkaline Phosphatase 74 Total Creatine Kinase 119 Troponin I < 0.012 NT-Pro-B Natriuret Pep 223 Total Protein 7.7 Albumin 4.2 Globulin 3.5 Albumin/Globulin Ratio 1.2 Procalcitonin 0.112 Chlamy pneumoniae PCR Not detected Adenovirus (PCR) Not detected B.parapertussis DNA PCR Not detected Coronavirus OC43 (PCR) Not detected Coronavirus HKU1 (PCR) Not detected Coronavirus 229E (PCR) Not detected SARS-CoV-2 (PCR) Not detected Coronavirus NL63 (PCR) Not detected Human Metapneumovir PCR Detected H Influenza Type A (PCR) Not detected Influenza Type B (PCR) Not detected M. pneumoniae (PCR) Not detected Parainfluenza 1 (PCR) Not detected Parainfluenza 2 (PCR) Not detected Parainfluenza 3 (PCR) Not detected Parainfluenza 4 (PCR) Not detected RSV (PCR) Not detected Entero/Rhino (PCR) Not detected Assessment & Plan Assessment and plan (1) Acute bronchitis due to human metapneumovirus: Status: Acute (2) Acute hypoxemic respiratory failure: Status: Acute (3) Chronic obstructive pulmonary disease: Qualifiers: COPD type: unspecified COPD Qualified Code(s): J44.9 - Chronic obstructive pulmonary disease, unspecified Status: Chronic (4) HTN (hypertension): Status: Acute Assessment & Plan narrative: 1. Acute Metapneumoviral Bronchitis - COPD exacerbation - acute hypoxemia, needs 2 L of oxygen - bronchodilators, steroids, Pulmicort - placed in observation 2. HTN -Losartan, Norvasc DVT prophylaxis - Lovenox
[2024-01-12] MEDS: SODIUM CHLORIDE 0.9% 1,000 ML 150 ML IV (21:35)
[2024-01-12] MEDS: DOCUSATE 100 MG CAPSULE PO (22:01)
[2024-01-12] MEDS: SENNOSIDES 8.6 MG TABLET 17.2 MG PO (22:01)
[2024-01-13] VITALS (7 sets, daily range): BP systolic 135–143; BP diastolic 72–81; PULSE 88–92; RESP 16–32; TEMP 36.3–36.8; O2SAT 90–94
[2024-01-13] MEDS: ALBUTEROL 2.5 MG/3 ML NEB (ADULT) INH ×2 (00:55→04:36)
[2024-01-13] MEDS: SODIUM CHLORIDE 0.9% 1,000 ML 150 ML IV (05:30)
[2024-01-13 06:27] LABS: Add Manual Diff / Slide Review NO; Basophils Absolute Auto 0 /uL (0-100); Basophils Percent Auto 0.3 % (0-2); Eosinophils Absolute Auto 0 /uL (0-450); Hematocrit 42.5 % (41-53); Hemoglobin 14.2 g/dL (13.5-17.5); Lymphocytes Absolute Auto 600 /uL (1100-4500); Lymphocytes Percent Auto 5.8 % (25-40); Mean Corpuscular HGB Conc 33.4 % (30-36); Mean Corpuscular Hemoglobin 29.7 PG (26-34); Mean Corpuscular Volume 88.9 fL (80-100); Monocytes Absolute Auto 500 /uL (0-900); Monocytes Percent Auto 5.1 % (3-14); Neutrophils Absolute Auto 8900 /uL (1500-7000); Neutrophils Percent Auto 88.8 % (50-75); Platelet Count 312 X10^3/uL (150-400); Red Blood Cell Count 4.78 X10^6/uL (4.5-5.9); Red Cell Distribution Width 14.6 % (11.6-14.8)
[2024-01-13 06:50] LABS: Blood Urea Nitrogen 17 mg/dL (9-20); Calcium 8.5 mg/dL (8.4-10.2); Carbon Dioxide 23 mmol/L (22-32); Chloride 104 mmol/L (98-107); Estimated Glomerular Filt Rate > 60 mL/min (>60); Glucose 156 mg/dL (80-110); HEMOLYSIS < 15 (0-50); Magnesium 2.1 mg/dL (1.6-2.3); Potassium 4.2 mmol/L (3.4-5.1); Sodium 135 mmol/L (137-145)
--- NOTE | 2024-01-13 07:14 | PM.PN.1 ---
Subjective Subjective Interval history: Admitted for viral illness and COPD exacerbation. From night doctor:88 y/o with PMH of bulous emphysema, on Advair and DuoNeb, and history of pulmonary aspergilosis, presented with worsening shortness of breath and diagnosed with COPD exacerbation and metapneumoviral bronchitis. Hypoxemic, tachypneic. Leukocytosis. CXR w/o infiltrates with RLL bulae. This AM: He feels little bit better today. He began to get ill last Sunday. His symptoms have primarily been a cough. He has a history of aspergillosis and asthma. He denies any fevers over the last 2 days. No nausea. He does not use oxygen at home. Exam Vital Signs (past 8 hours): - 01/12/24 23:44 01/13/24 05:09 Temperature 97.6 F 97.4 F L Pulse Rate 87 90 Respiratory Rate 16 20 Blood Pressure 126/72 135/72 Pulse Oximetry 93 91 Oxygen Flow Rate 2 2 Oxygen Delivery Method Nasal Cannula Oxygen Flow Rate 2 Narrative Exam Narrative: NAD, alert and oriented. Fluent speech. Lungs are clear, normal rate and effort. Heart is regular, no murmur gallop or rub. Abdomen is soft, non distended. Extremities are free of edema. Objective Labs 01/13/24 06:13 01/13/24 06:13 Labs: Laboratory Results - last 24 hr 01/12/24 01/12/24 01/13/24 17:50 18:04 06:13 WBC 13.7 H 10.0 RBC 5.15 4.78 Hgb 15.2 14.2 Hct 45.9 42.5 MCV 89.2 88.9 MCH 29.6 29.7 MCHC 33.2 33.4 RDW 14.5 14.6 Plt Count 373 312 Neut % (Auto) 82.9 H 88.8 H Lymph % (Auto) 9.3 L 5.8 L [place] % (Auto) 6.9 5.1 Eos % (Auto) 0.3 L 0.0 L Baso % (Auto) 0.6 0.3 Neut # (Auto) 80630 H 8900 H Lymph # (Auto) 1300 600 L [place] # (Auto) 900 500 Eos # (Auto) 0 0 Baso # (Auto) 100 0 PT 12.4 INR 1.1 APTT 33 Sodium 139 135 L Potassium 4.0 4.2 Chloride 104 104 Carbon Dioxide 23 23 BUN 12 17 Creatinine 0.88 0.81 Estimated GFR > 60 > 60 BUN/Creatinine Ratio 13.6 21.0 Glucose 107 156 H Lactate 1.7 Calcium 9.0 8.5 Magnesium 2.1 Total Bilirubin 1.1 AST 26 ALT 18 Alkaline Phosphatase 74 Total Creatine Kinase 119 Troponin I < 0.012 NT-Pro-B Natriuret Pep 223 Total Protein 7.7 Albumin 4.2 Globulin 3.5 Albumin/Globulin Ratio 1.2 Procalcitonin 0.112 Chlamy pneumoniae PCR Not detected Adenovirus (PCR) Not detected B.parapertussis DNA PCR Not detected Coronavirus OC43 (PCR) Not detected Coronavirus HKU1 (PCR) Not detected Coronavirus 229E (PCR) Not detected SARS-CoV-2 (PCR) Not detected Coronavirus NL63 (PCR) Not detected Human Metapneumovir PCR Detected H Influenza Type A (PCR) Not detected Influenza Type B (PCR) Not detected M. pneumoniae (PCR) Not detected Parainfluenza 1 (PCR) Not detected Parainfluenza 2 (PCR) Not detected Parainfluenza 3 (PCR) Not detected Parainfluenza 4 (PCR) Not detected RSV (PCR) Not detected Entero/Rhino (PCR) Not detected PFS Medical History HTN (hypertension) ABPA (allergic bronchopulmonary aspergillosis) (Unknown) Allergic rhinitis (Unknown) Hyperlipemia (Unknown) Hemorrhoids (Unknown) Prostate cancer (1997) Kidney stones (07/2009) COPD (chronic obstructive pulmonary disease) (Unknown) Surgical History Hx of cholecystectomy (2007) Hx of appendectomy (2010) Hx of prostatectomy (1997) Hx of tonsillectomy (1954) Hx of hernia repair (2009) Hx of transurethral resection of prostate (1997) Social History household members: none Smoking Status: Never smoker alcohol intake: current substance use type: does not use Assessment & Plan Assessment & Plan narrative: 1. Metapneumovirus, present on admission and active. 2. COPD exacerbation, present on admission and active. 3. Acute hypoxic respiratory failure, present on admission and active. 4. Hypertension, present on admission and active. 5. Allergic bronchopulmonary aspergillosis, present on admission and stable. 6. Prostate cancer, present on admission and stable. PLAN: -continue bronchodilators and steroids. -wean oxygen as able. -out of bed and encourage ambulation. Estimated date of discharge is January 14. He is full resuscitation. He lives alone in [place] in the [facility].
[2024-01-13] MEDS: AMLODIPINE 5 MG TABLET 2.5 MG PO (08:51)
[2024-01-13] MEDS: predniSONE 20 MG TABLET 40 MG PO (08:51)
[2024-01-13] MEDS: DOCUSATE 100 MG CAPSULE PO (08:52)
[2024-01-13] MEDS: ENOXAPARIN 40 MG/0.4 ML SYRINGE SUBCUT (08:52)
[2024-01-13] MEDS: BUDESONIDE 0.5 MG/2 ML NEB INH ×2 (09:27→20:32)
[2024-01-13] MEDS: ALBUTEROL/IPRATROPIUM 3 ML AMPUL INH ×3 (09:27→20:32)
--- NOTE | 2024-01-13 11:20 | CM.DANOTE ---
Brief DCP Assessment note Pt is a 88yo M here under the care of the hospitalist team with SOB/ COPD exacerbation. PCP None listed Payer Medicare and [employer] reviewed EMR. Per chart review, pt lives alone in [place] at baseline. Pt has no home O2 but currently is on 2ltrs. POA is cecilia Taylor (p [phone]) who lives out of state. ([place] Per hospitalist in multidisciplinary rounds, anticipate January 14 (two day) discharge. Hold PT for today but PT eval tomorrow. P: anticipate home when off O2. f/u for PT eval recs for home vs HH. CHARLES Jacobson Discharge Planning/Care Management CM Discharge Assessment Start: 01/13/24 11:16 Freq: Status: Active Protocol: Document 01/13/24 11:17 (Rec: 01/13/24 11:19 [id number]) Discharge Planning Assessment Assigned Bowling Alley Manager CHARLES Mahajan DPOA/Assigned Designee Name Claudia Devlin Contact Information [phone] Advance Directives? No History Provided By Family Member Prior Living Arrangements House Household Members none Type of transporation used prior to Drives own vehicle admit Independent with ADL's Yes Is patient alert and oriented? Yes Discharge Plan Home Whiteboard Updated in Patient Room with No name and ext. # of Bowling Alley Manager Review Status In Process Please Provide Date Initial DC 01/13/24 Assessment Was Performed Next Review Type Continued Stay Review
[2024-01-13] MEDS: LOSARTAN 50 MG TABLET PO (20:41)
[2024-01-14] VITALS (10 sets, daily range): BP systolic 119–143; BP diastolic 61–82; PULSE 76–98; RESP 18–20; TEMP 36.4–36.9; O2SAT 90–94
[2024-01-14] MEDS: ALBUTEROL/IPRATROPIUM 3 ML AMPUL INH ×6 (03:42→23:25)
--- NOTE | 2024-01-14 07:17 | PM.PN.1 ---
Subjective Subjective Interval history: He is doing okay. His breathing is about the same. He is on 2-3 L. He has some cough. He denies any chest pain. He does not take oxygen at home. He has a history of aspergillosis. He also has a history of asthma. He has no history of using tobacco products. He lives alone in [place]. PCR was positive for metapneumovirus. Exam Vital Signs (past 8 hours): - 01/14/24 04:32 Temperature 97.6 F Pulse Rate 76 Respiratory Rate 20 Blood Pressure 143/80 H Pulse Oximetry 90 L Oxygen Flow Rate 2 Oxygen Delivery Method Nasal Cannula Oxygen Flow Rate 2 Narrative Exam Narrative: NAD, alert and oriented. Fluent speech. Lungs are notable for normal rate and effort. He does have diminished breath sounds and prolonged expiratory phase. Scattered rhonchi. Heart is regular, no murmur gallop or rub. Abdomen is soft, non distended. Extremities are free of edema. Objective Labs 01/13/24 06:13 01/13/24 06:13 [facility] Medical History HTN (hypertension) ABPA (allergic bronchopulmonary aspergillosis) (Unknown) Allergic rhinitis (Unknown) Hyperlipemia (Unknown) Hemorrhoids (Unknown) Prostate cancer (1997) Kidney stones (07/2009) COPD (chronic obstructive pulmonary disease) (Unknown) Surgical History Hx of cholecystectomy (2007) Hx of appendectomy (2010) Hx of prostatectomy (1997) Hx of tonsillectomy (1954) Hx of hernia repair (2009) Hx of transurethral resection of prostate (1997) Social History household members: none Smoking Status: Never smoker alcohol intake: current substance use type: does not use Assessment & Plan Assessment & Plan narrative: 1. Metapneumovirus, present on admission and active. 2. COPD exacerbation, present on admission and active. 3. Acute hypoxic respiratory failure, present on admission and active. 4. Hypertension, present on admission and active. 5. Allergic bronchopulmonary aspergillosis, present on admission and stable. 6. Prostate cancer, present on admission and stable. PLAN: -continue bronchodilators and steroids. -wean oxygen as able. -out of bed and encourage ambulation. -add doxycycline 100 p.o. b.i.d.. Estimated date of discharge is January 14. He is full resuscitation. He lives alone in [place] in the [facility].
[2024-01-14] MEDS: BUDESONIDE 0.5 MG/2 ML NEB INH ×2 (07:37→19:33)
[2024-01-14] MEDS: AMLODIPINE 5 MG TABLET 2.5 MG PO (09:01)
[2024-01-14] MEDS: ENOXAPARIN 40 MG/0.4 ML SYRINGE SUBCUT (09:01)
[2024-01-14] MEDS: predniSONE 20 MG TABLET 40 MG PO (09:01)
[2024-01-14] MEDS: DOXYCYCLINE HYCLATE 100 MG TABLET PO ×2 (11:24→22:07)
[2024-01-14] MEDS: ALBUTEROL 2.5 MG/3 ML NEB (ADULT) INH (13:42)
--- NOTE | 2024-01-14 15:09 | CM.DPC ---
DCP Cont: Per MD, pt remains on oxygen and not yet stable for discharge and likely another day. RT working to wean pt to RA. Per RN, no PT needs as pt has been independent and steady in room with mobility and once on RA then no discharge concerns noted. CHARLES Arnold
[2024-01-14] MEDS: LOSARTAN 50 MG TABLET PO (22:07)
[2024-01-14] MEDS: DOCUSATE 100 MG CAPSULE PO (22:07)
[2024-01-15] VITALS (11 sets, daily range): BP systolic 125–164; BP diastolic 65–94; PULSE 82–93; RESP 18–24; TEMP 36.3–36.8; O2SAT 91–93
[2024-01-15] MEDS: ALBUTEROL 2.5 MG/3 ML NEB (ADULT) INH (04:08)
[2024-01-15] MEDS: BUDESONIDE 0.5 MG/2 ML NEB INH ×2 (08:45→18:58)
[2024-01-15] MEDS: ALBUTEROL/IPRATROPIUM 3 ML AMPUL INH ×5 (08:45→23:19)
[2024-01-15] MEDS: DOCUSATE 100 MG CAPSULE PO ×2 (09:29→21:08)
[2024-01-15] MEDS: AMLODIPINE 5 MG TABLET 2.5 MG PO (09:29)
[2024-01-15] MEDS: DOXYCYCLINE HYCLATE 100 MG TABLET PO ×2 (09:30→21:08)
[2024-01-15] MEDS: ENOXAPARIN 40 MG/0.4 ML SYRINGE SUBCUT (09:30)
[2024-01-15] MEDS: predniSONE 20 MG TABLET 40 MG PO (09:30)
--- NOTE | 2024-01-15 10:59 | PC.NURSE ---
Patient is requiring 2l of 02 if he takes it off on RA his sats decrease to about 89%. He is using his IS well and acapella. Appetite good. Patients lung sounds decreased but clear. He does have a productive cough.
--- NOTE | 2024-01-15 12:31 | PM.PN.1 ---
Subjective Subjective Interval history: He is doing okay. His breathing is about the same. He is on 2L today. He has some cough. He denies any chest pain. He does not take oxygen at home. He has a history of aspergillosis. He also has a history of asthma. He has no history of using tobacco products. Exam Vital Signs (past 8 hours): - 01/15/24 08:00 01/15/24 08:47 01/15/24 11:33 Temperature 98 F Pulse Rate 84 Respiratory Rate 20 Blood Pressure 144/92 H Pulse Oximetry 92 93 93 Oxygen Delivery Method Nasal Cannula Nasal Cannula Oxygen Flow Rate 2 3 2 01/15/24 11:44 Temperature 97.4 F L Pulse Rate 87 Respiratory Rate 24 Blood Pressure 125/65 Pulse Oximetry 92 Oxygen Delivery Method Oxygen Flow Rate 2 Oxygen Delivery Method Nasal Cannula Oxygen Flow Rate 2 Narrative Exam Narrative: NAD, alert and oriented. Fluent speech. Lungs are notable for normal rate and effort. He does have diminished breath sounds and prolonged expiratory phase. Scattered rhonchi. Heart is regular, no murmur gallop or rub. Abdomen is soft, non distended. Extremities are free of edema. Objective Labs 01/13/24 06:13 01/13/24 06:13 [facility] Medical History HTN (hypertension) ABPA (allergic bronchopulmonary aspergillosis) (Unknown) Allergic rhinitis (Unknown) Hyperlipemia (Unknown) Hemorrhoids (Unknown) Prostate cancer (1997) Kidney stones (07/2009) COPD (chronic obstructive pulmonary disease) (Unknown) Surgical History Hx of cholecystectomy (2007) Hx of appendectomy (2010) Hx of prostatectomy (1997) Hx of tonsillectomy (1954) Hx of hernia repair (2009) Hx of transurethral resection of prostate (1997) Social History household members: none Smoking Status: Never smoker alcohol intake: current substance use type: does not use Assessment & Plan Assessment & Plan narrative: 1. Metapneumovirus, present on admission and active. 2. COPD exacerbation, present on admission and active. 3. Acute hypoxic respiratory failure, present on admission and active. 4. Hypertension, present on admission and active. 5. Allergic bronchopulmonary aspergillosis, present on admission and stable. 6. Prostate cancer, present on admission and stable. PLAN: -continue bronchodilators and steroids. -wean oxygen as able. -out of bed and encourage ambulation. -prednisone 40 mg daily for 5 days. -continue doxycycline 100 p.o. b.i.d.. Estimated date of discharge is January 14. He is full resuscitation, surrogate is patient's daughter He lives alone in [place] in the [facility].
[2024-01-15] MEDS: LOSARTAN 50 MG TABLET PO (21:08)
[2024-01-16] VITALS (9 sets, daily range): BP systolic 108–142; BP diastolic 68–85; PULSE 77–92; RESP 18–22; TEMP 36.2–37; O2SAT 91–93
[2024-01-16 06:36] LABS: Add Manual Diff / Slide Review NO; Basophils Absolute Auto 100 /uL (0-100); Basophils Percent Auto 0.5 % (0-2); Eosinophils Absolute Auto 100 /uL (0-450); Eosinophils Percent Auto 1.5 % (2-4); Hemoglobin 13.7 g/dL (13.5-17.5); Lymphocytes Absolute Auto 1500 /uL (1100-4500); Mean Corpuscular HGB Conc 34.2 % (30-36); Mean Corpuscular Volume 87.6 fL (80-100); Monocytes Absolute Auto 1100 /uL (0-900); Monocytes Percent Auto 11.6 % (3-14); Neutrophils Absolute Auto 7100 /uL (1500-7000); Neutrophils Percent Auto 71.4 % (50-75); Platelet Count 393 X10^3/uL (150-400); Red Blood Cell Count 4.57 X10^6/uL (4.5-5.9); Red Cell Distribution Width 14.3 % (11.6-14.8); White Blood Cell Count 9.9 X10^3/uL (4.5-11.0)
[2024-01-16 06:53] LABS: BUN Creatinine Ratio 28.9 (6-22); Blood Urea Nitrogen 22 mg/dL (9-20); Calcium 9.1 mg/dL (8.4-10.2); Carbon Dioxide 28 mmol/L (22-32); Chloride 106 mmol/L (98-107); Estimated Glomerular Filt Rate > 60 mL/min (>60); Glucose 99 mg/dL (80-110); HEMOLYSIS < 15 (0-50); Magnesium 2.1 mg/dL (1.6-2.3); Potassium 4.4 mmol/L (3.4-5.1); Sodium 138 mmol/L (137-145)
[2024-01-16] MEDS: BUDESONIDE 0.5 MG/2 ML NEB INH ×2 (07:38→19:42)
[2024-01-16] MEDS: ALBUTEROL/IPRATROPIUM 3 ML AMPUL INH ×5 (07:38→23:12)
[2024-01-16] MEDS: predniSONE 20 MG TABLET 40 MG PO (08:48)
[2024-01-16] MEDS: AMLODIPINE 5 MG TABLET 2.5 MG PO (08:48)
[2024-01-16] MEDS: DOXYCYCLINE HYCLATE 100 MG TABLET PO ×2 (08:49→20:53)
[2024-01-16] MEDS: ENOXAPARIN 40 MG/0.4 ML SYRINGE SUBCUT (08:49)
[2024-01-16] MEDS: DOCUSATE 100 MG CAPSULE PO ×2 (08:49→20:52)
--- NOTE | 2024-01-16 09:41 | P.PN_ITS ---
Subjective Subjective Interval history: He is doing okay. His breathing is about the same. He is on 1-2L today with slow improvement. We discussed possibility of need for home O2, he would like to give it a day or two still before going home to see if he can come off of oxygen. Exam Vital Signs (past 8 hours): - 01/16/24 04:25 01/16/24 07:39 01/16/24 07:47 Temperature 97.2 F L Pulse Rate 77 Respiratory Rate 20 Blood Pressure 137/81 Pulse Oximetry 93 Oxygen Delivery Method Nasal Cannula Nasal Cannula Oxygen Flow Rate 2 2 01/16/24 08:37 Temperature 98.2 F Pulse Rate 92 H Respiratory Rate 20 Blood Pressure 142/85 H Pulse Oximetry 92 Oxygen Delivery Method Oxygen Flow Rate 2 Fraction of Inspired Oxygen 24 SaO2/FiO2 Ratio 387 Oxygen Delivery Method Nasal Cannula Oxygen Flow Rate 2 Narrative Exam Narrative: NAD, alert and oriented. Fluent speech. Lungs are notable for normal rate and effort. He does have diminished breath sounds and prolonged expiratory phase. Scattered rhonchi. Heart is regular, no murmur gallop or rub. Abdomen is soft, non distended. Extremities are free of edema. Objective Labs 01/16/24 06:20 01/16/24 06:20 Labs: Laboratory Results - last 24 hr 01/16/24 06:20 WBC 9.9 RBC 4.57 Hgb 13.7 Hct 40.0 L MCV 87.6 MCH 30.0 MCHC 34.2 RDW 14.3 Plt Count 393 Neut % (Auto) 71.4 Lymph % (Auto) 15.0 L [place] % (Auto) 11.6 Eos % (Auto) 1.5 L Baso % (Auto) 0.5 Neut # (Auto) 7100 H Lymph # (Auto) 1500 [place] # (Auto) 1100 H Eos # (Auto) 100 Baso # (Auto) 100 Sodium 138 Potassium 4.4 Chloride 106 Carbon Dioxide 28 BUN 22 H Creatinine 0.76 Estimated GFR > 60 BUN/Creatinine Ratio 28.9 H Glucose 99 Calcium 9.1 Magnesium 2.1 [facility] Medical History HTN (hypertension) ABPA (allergic bronchopulmonary aspergillosis) (Unknown) Allergic rhinitis (Unknown) Hyperlipemia (Unknown) Hemorrhoids (Unknown) Prostate cancer (1997) Kidney stones (07/2009) COPD (chronic obstructive pulmonary disease) (Unknown) Surgical History Hx of cholecystectomy (2007) Hx of appendectomy (2010) Hx of prostatectomy (1997) Hx of tonsillectomy (1954) Hx of hernia repair (2009) Hx of transurethral resection of prostate (1997) Social History household members: none Smoking Status: Never smoker alcohol intake: current substance use type: does not use Assessment & Plan Assessment & Plan narrative: 1. Metapneumovirus, present on admission and active. 2. COPD exacerbation, present on admission and active. 3. Acute hypoxic respiratory failure, present on admission and active. 4. Hypertension, present on admission and active. 5. Allergic bronchopulmonary aspergillosis, present on admission and stable. 6. Prostate cancer, present on admission and stable. PLAN: -continue bronchodilators and steroids. -wean oxygen as able. -out of bed and encourage ambulation. -prednisone 40 mg daily for 5 days. -continue doxycycline 100 p.o. b.i.d.. Estimated date of discharge is 1-2 more days. May need home O2. He is full resuscitation, surrogate is patient's daughter He lives alone in [place] in the [facility].
--- NOTE | 2024-01-16 10:03 | CM.DPC ---
DCP Cont. Reviewed EMR and team rounds for status updates. Per Hospitalist, pt remains on 2LO2, will need to wean down to no O2 before he's medically ready for home d/c. Will continue to monitor.
[2024-01-16] MEDS: SENNOSIDES 8.6 MG TABLET 17.2 MG PO (20:52)
[2024-01-16] MEDS: LOSARTAN 50 MG TABLET PO (20:52)
[2024-01-17] VITALS (10 sets, daily range): BP systolic 112–121; BP diastolic 63–78; PULSE 72–92; RESP 16–22; TEMP 36.6–36.9; O2SAT 89–98
[2024-01-17 06:02] LABS: Add Manual Diff / Slide Review NO; Basophils Absolute Auto 100 /uL (0-100); Basophils Percent Auto 0.8 % (0-2); Eosinophils Absolute Auto 400 /uL (0-450); Eosinophils Percent Auto 3.8 % (2-4); Hematocrit 39.4 % (41-53); Hemoglobin 13.2 g/dL (13.5-17.5); Lymphocytes Absolute Auto 1800 /uL (1100-4500); Lymphocytes Percent Auto 18.7 % (25-40); Mean Corpuscular HGB Conc 33.5 % (30-36); Mean Corpuscular Hemoglobin 29.4 PG (26-34); Mean Corpuscular Volume 87.9 fL (80-100); Monocytes Absolute Auto 1000 /uL (0-900); Monocytes Percent Auto 10.9 % (3-14); Neutrophils Absolute Auto 6100 /uL (1500-7000); Neutrophils Percent Auto 65.8 % (50-75); Platelet Count 384 X10^3/uL (150-400); Red Blood Cell Count 4.49 X10^6/uL (4.5-5.9); Red Cell Distribution Width 14.5 % (11.6-14.8); White Blood Cell Count 9.3 X10^3/uL (4.5-11.0)
[2024-01-17 06:14] LABS: BUN Creatinine Ratio 32.3 (6-22); Blood Urea Nitrogen 30 mg/dL (9-20); Calcium 9.2 mg/dL (8.4-10.2); Carbon Dioxide 27 mmol/L (22-32); Chloride 102 mmol/L (98-107); Estimated Glomerular Filt Rate > 60 mL/min (>60); Glucose 95 mg/dL (80-110); HEMOLYSIS < 15 (0-50); Magnesium 1.9 mg/dL (1.6-2.3); Potassium 4.8 mmol/L (3.4-5.1); Sodium 131 mmol/L (137-145)
[2024-01-17] MEDS: BUDESONIDE 0.5 MG/2 ML NEB INH ×2 (06:17→18:57)
[2024-01-17] MEDS: ALBUTEROL/IPRATROPIUM 3 ML AMPUL INH ×5 (06:17→22:55)
--- NOTE | 2024-01-17 08:39 | DIET.CONS2 ---
Dietary Inpatient Consultation Note Admission Date: 01/12/2024 20:17 88 y M admitted with SOB/COPD exacerbation. Nutrition screened for LOS day 5. Chart reviewed. Pt with no significant weight loss, recorded po intakes between 75-100%. No nutritional interventions needed at this time. Diet: 01/13/24 Breakfast General (Regular) Diet Diet Modifications: Nutrition Percent Meal Consumed 100% 01/16/24 18:00 Percent Meal Consumed 100% 01/16/24 13:10 Percent Meal Consumed 100% 01/16/24 08:38 Percent Meal Consumed 100% 01/15/24 17:41 Percent Meal Consumed 100% 01/15/24 13:00 Percent Meal Consumed 100% 01/15/24 08:53 Electronically Signed by: Ivon Townsend 01/17/24 08:39 Clinical Dietitian [address] [address]
[2024-01-17] MEDS: DOXYCYCLINE HYCLATE 100 MG TABLET PO ×2 (08:51→21:19)
[2024-01-17] MEDS: predniSONE 20 MG TABLET 40 MG PO (08:51)
[2024-01-17] MEDS: ENOXAPARIN 40 MG/0.4 ML SYRINGE SUBCUT (08:51)
[2024-01-17] MEDS: DOCUSATE 100 MG CAPSULE PO ×2 (08:51→21:19)
[2024-01-17] MEDS: AMLODIPINE 5 MG TABLET 2.5 MG PO (08:52)
[2024-01-17] MEDS: polyethylene glycoL 3350 17 GM POWD.PACK PO (08:53)
--- NOTE | 2024-01-17 10:09 | P.PN_ITS ---
Subjective Subjective Interval history: Slow improvement. Still short of breath. Less cough. Still with low SaO2 on O2. Weak. Exam Vital Signs (past 8 hours): - 01/17/24 04:51 01/17/24 05:26 01/17/24 06:17 Temperature 97.8 F Pulse Rate 79 78 72 Respiratory Rate 19 16 20 Blood Pressure 112/71 113/72 Pulse Oximetry 92 93 93 Oxygen Delivery Method Nasal Cannula Oxygen Flow Rate 3.5 2 Fraction of Inspired Oxygen 28 01/17/24 08:00 01/17/24 08:08 Temperature 97.8 F Pulse Rate 86 Respiratory Rate 18 Blood Pressure 120/78 Pulse Oximetry 90 L Oxygen Delivery Method Nasal Cannula Oxygen Flow Rate 1.5 Fraction of Inspired Oxygen Fraction of Inspired Oxygen 28 SaO2/FiO2 Ratio 332 Oxygen Delivery Method Nasal Cannula Oxygen Flow Rate 1.5 Narrative Exam Narrative: NAD, alert and oriented. Fluent speech. Lungs are clear, normal rate and effort. Still with increased expiration phase. Heart is regular, no murmur gallop or rub. Abdomen is soft, non distended. Extremities are free of edema. Objective Labs 01/17/24 05:40 01/17/24 05:40 Labs: Laboratory Results - last 24 hr 01/17/24 05:40 WBC 9.3 RBC 4.49 L Hgb 13.2 L Hct 39.4 L MCV 87.9 MCH 29.4 MCHC 33.5 RDW 14.5 Plt Count 384 Neut % (Auto) 65.8 Lymph % (Auto) 18.7 L [place] % (Auto) 10.9 Eos % (Auto) 3.8 Baso % (Auto) 0.8 Neut # (Auto) 6100 Lymph # (Auto) 1800 [place] # (Auto) 1000 H Eos # (Auto) 400 Baso # (Auto) 100 Sodium 131 L Potassium 4.8 Chloride 102 Carbon Dioxide 27 BUN 30 H Creatinine 0.93 Estimated GFR > 60 BUN/Creatinine Ratio 32.3 H Glucose 95 Calcium 9.2 Magnesium 1.9 PFSH Medical History HTN (hypertension) ABPA (allergic bronchopulmonary aspergillosis) (Unknown) Allergic rhinitis (Unknown) Hyperlipemia (Unknown) Hemorrhoids (Unknown) Prostate cancer (1997) Kidney stones (07/2009) COPD (chronic obstructive pulmonary disease) (Unknown) Surgical History Hx of cholecystectomy (2007) Hx of appendectomy (2010) Hx of prostatectomy (1997) Hx of tonsillectomy (1954) Hx of hernia repair (2009) Hx of transurethral resection of prostate (1997) Social History household members: none Smoking Status: Never smoker alcohol intake: current substance use type: does not use Assessment & Plan Assessment & Plan narrative: 1. Metapneumovirus, present on admission and active. 2. COPD exacerbation, present on admission and active. 3. Acute hypoxic respiratory failure, present on admission and active. 4. Hypertension, present on admission and active. 5. Allergic bronchopulmonary aspergillosis, present on admission and stable. 6. Prostate cancer, present on admission and stable. PLAN: -continue bronchodilators and steroids. -wean oxygen as able. -out of bed and encourage ambulation. -prednisone 40 mg daily for 5 days. -continue doxycycline 100 p.o. b.i.d. -PT eval for discharge planning.
--- NOTE | 2024-01-17 10:47 | CM.DPC ---
DCP Continued Reviewed EMR and team rounds for pt?s medical status. Per hospitalist and nursing staff, pt is ambulating but is still on 2L O2 and desats when weaning. PT consult placed and will evaluate pt's status. Plan: Pending PT recommendations for dc plans, still needs to wean to baseline no O2 for dc. CM Team will continue to follow for coordination of discharge plans. DARIEL Miller
--- NOTE | 2024-01-17 13:00 | PT.IIE ---
Current Diagnoses Human metapneumovirus as the cause of diseases classified elsewhere (01/12/24) Essential (primary) hypertension (01/12/24) Acute bronchitis due to other specified organisms (01/12/24) Chronic obstructive pulmonary disease, unspecified (01/12/24) Acute respiratory failure with hypoxia (01/12/24) Surgical History (Last Reviewed 01/13/24 @ 07:15 by Harrison Cochran MD) Hx of appendectomy (2010) Hx of cholecystectomy (2007) Hx of hernia repair (2009) Hx of prostatectomy (1997) Hx of tonsillectomy (1954) Hx of transurethral resection of prostate (1997) Medical History (Last Reviewed 01/13/24 @ 07:15 by Harrison Cochran MD) ABPA (allergic bronchopulmonary aspergillosis) (Unknown) Allergic rhinitis (Unknown) COPD (chronic obstructive pulmonary disease) (Unknown) Hemorrhoids (Unknown) HTN (hypertension) Hyperlipemia (Unknown) Kidney stones (07/2009) Prostate cancer (1997) Physical Therapy Inpatient Evaluation/Re-Eval M1 PT/OT-IP Prior Functional Status Start: 01/17/24 12:17 Freq: NEEDED Status: Active Protocol: Document 01/17/24 12:18 MB (Rec: 01/17/24 13:00 MB [id number]) Medical Review Prior Functional Status Medical History Reviewed Yes Communication Do not know baseline diet. Communication apperas normal Mobility and Gait I Activities of Daily Living and IADL's I, drove, lived alone, did not use AD Social History Household Members none Living Arrangements House Number of Floors (Floors) Two Floors Number of Stairs To Enter/Railing? 2 floors and pt states he can live on main floor, 2 steps enter with left rail Home Environment Standard Height Toilet,High Toilet,Tub/Shower Home Equipment Grab Bars In Shower Employment Status Retired M2 PT-IP Current Condition Start: 01/17/24 12:17 Freq: NEEDED Status: Active Protocol: Document 01/17/24 12:18 MB (Rec: 01/17/24 13:00 MB [id number]) Physical Therapy Current Condition Current Condition Evaluation Date 01/17/24 Treatment Diagnosis COVID M3 PT-IP Subjective Start: 01/17/24 12:17 Freq: NEEDED Status: Active Protocol: Document 01/17/24 12:18 MB (Rec: 01/17/24 13:00 MB [id number]) Subjective Physical Therapy Visit Type Type Initial Evaluation Visit Start Time 12:18 Visit Stop Time 12:39 Number of GLUING MACHINE OPERATOR Visits 0 Physical Therapy Visit Comments Patient Comments Pt finishing lunch upon arrival, has not finished dessert and is agreeable to get up to the chair. Therapy Pain Assessment Pain When Pain Assessed At Rest Pain Present Pain Present Denied Pain M4 PT-IP Mobility and Gait Start: 01/17/24 12:17 Freq: NEEDED Status: Active Protocol: Document 01/17/24 12:18 MB (Rec: 01/17/24 13:00 [id number]) PT-Bed Mobility Assessment Supine to Sit Supine to Sit Standby Assistance,1 Person Assistance,Head of Bed Elevated,Bedrails Scooting Scooting to Edge of Bed Standby Assistance PT-Transfer Assessment Sit to and From Stand Sit to and from Stand Contact Guard Assistance,1 Person Assistance,Use of Upper Extremities Equipment Transfer Assistive Device None Orthotic/Prosthetic Devices or Brace: No Transfers Transfer Destination Chair Transfer Technique A few steps Transfer Ability Level of Assist Contact Guard Assistance Gait Assessment Gait Gait Assistance Required: Contact Guard Assist Distance (Feet) 1 Able to Maintain Weight Bearing Status Yes During Gait Assistive Devices Assistive Device None Orthotic/Prosthetic Devices or Brace: No Gait Deviations General Gait Pattern Decreased Feet Clearance, Flexed Trunk Factors Limiting Gait Function Factors Limiting Gait Function Poor Balance,Poor Safety Awareness Comments Gait Comments O2 line and just stepping to chair d/t WEINER today. O2 sats are 89% at rest and 91% with mobility on 2L today PT-Balance Assessment Sitting Balance and Reactions Static Sitting Balance Ability Good Dynamic Sitting Balance Ability Good Standing Balance and Reactions Static Standing Balance Ability Good Dynamic Standing Balance Ability Good Device Used None M5 PT-IP Objective Assessments Start: 01/17/24 12:17 Freq: NEEDED Status: Active Protocol: Document 01/17/24 12:18 MB (Rec: 01/17/24 13:00 [id number]) Orientation Orientation/Cognition Level of Alertness Alert Orientation Name,Age,Birthday,Month,Date, Year,Day of Week,Place, Situation Language Function Ability No Deficits Noted Safety Awareness Understands Safety Issues Memory Description No Deficits Noted Gross Range of Motion Upper Extremity ROM Assessment Within Functional Limits Lower Extremity ROM Assessment Within Functional Limits Strength Upper Extremity Strength Assessment Within Functional Limits Lower Extremity Strength Assessment Within Functional Limits Muscle Tone Muscle Tone WNL Yes M6 PT-IP Treatment Start: 01/17/24 12:17 Freq: NEEDED Status: Active Protocol: Document 01/17/24 12:18 MB (Rec: 01/17/24 13:00 MB [id number]) Physical Therapy Treatment Education Education Provided Safety M7 PT-IP Assessment and Plan Start: 01/17/24 12:17 Freq: NEEDED Status: Active Protocol: Document 01/17/24 12:18 MB (Rec: 01/17/24 13:00 MB [id number]) PT Summary Assessment and Plan Potential Rehabilitation Potential Good Status of Condition at Evaluation Evolving Summary Impairments Balance,Bed Mobility,Transfers ,Gait,Activity Tolerance Progress Towards Goals Progressing Toward Goals Assessment Summary Pt is a pleasant 88 y/o male presenting with WEINER and requiring O2 on assessment date d/t COVID and wet sounding breathing. At baseline, he lives at home alone and is I without AD. He will benefit from PT to maximize balance and I. Goals Bed Mobility Goal Independent Transfer Goal Independent Gait Goal Independent Gait Distance 100 Other Goals Pt will ascend and descend 2 steps with left rail and mod I . Use of LRAD as needed for gait Days to Meet Goals 6 Frequency of Treatment Frequency Of Treatment Once a Day Treatment Plan Physical Therapy Treatment Plan Bed Mobility Training,Transfer Training,Gait Training, Therapeutic Exercise,Balance Retraining,Discharge Planning Precautions Other Precautions Droplet Weight Bearing Status Weight Bearing Status Weight Bear as Tolerated Recommendations To Nursing Amount of Assist Needed 1 Person Assist Discharge Recommendations PT Discharge Recommendations Home vs SNF Other Discharge Recommendations Pt does not have assistance available at home except for neighbors Transportation Needs at Discharge Private Vehicle
[2024-01-17] MEDS: LOSARTAN 50 MG TABLET PO (21:19)
[2024-01-18 00:42] VITALS: BP 139/79; PULSE 89; RESP 20; TEMP 36.4; O2SAT 95
[2024-01-18 05:52] LABS: Add Manual Diff / Slide Review NO; Basophils Absolute Auto 0 /uL (0-100); Basophils Percent Auto 0.3 % (0-2); Eosinophils Absolute Auto 300 /uL (0-450); Eosinophils Percent Auto 3.3 % (2-4); Hematocrit 38.8 % (41-53); Hemoglobin 13.2 g/dL (13.5-17.5); Lymphocytes Absolute Auto 1600 /uL (1100-4500); Mean Corpuscular HGB Conc 33.9 % (30-36); Mean Corpuscular Hemoglobin 29.9 PG (26-34); Mean Corpuscular Volume 88.1 fL (80-100); Monocytes Absolute Auto 1000 /uL (0-900); Monocytes Percent Auto 10.1 % (3-14); Neutrophils Absolute Auto 7200 /uL (1500-7000); Neutrophils Percent Auto 70.3 % (50-75); Platelet Count 389 X10^3/uL (150-400); Red Cell Distribution Width 14.7 % (11.6-14.8); White Blood Cell Count 10.2 X10^3/uL (4.5-11.0)
[2024-01-18 06:11] LABS: BUN Creatinine Ratio 41.3 (6-22); Blood Urea Nitrogen 31 mg/dL (9-20); Carbon Dioxide 26 mmol/L (22-32); Chloride 101 mmol/L (98-107); Estimated Glomerular Filt Rate > 60 mL/min (>60); Glucose 97 mg/dL (80-110); HEMOLYSIS < 15 (0-50); Magnesium 2.1 mg/dL (1.6-2.3); Potassium 4.8 mmol/L (3.4-5.1); Sodium 130 mmol/L (137-145)
--- NOTE | 2024-01-18 07:41 | P.PN_ITS ---
Subjective Subjective Interval history: Exam Vital Signs (past 8 hours): - 01/18/24 00:42 Temperature 97.6 F Pulse Rate 89 Respiratory Rate 20 Blood Pressure 139/79 Pulse Oximetry 95 Oxygen Flow Rate 1 Fraction of Inspired Oxygen 28 SaO2/FiO2 Ratio 332 Oxygen Delivery Method Nasal Cannula Oxygen Flow Rate 1 Narrative Exam Narrative: NAD, alert and oriented. Fluent speech. Lungs are clear, normal rate and effort. Heart is regular, no murmur gallop or rub. Abdomen is soft, non distended. Extremities are free of edema. Objective Labs 01/18/24 05:30 01/18/24 05:30 Labs: Laboratory Results - last 24 hr 01/18/24 05:30 WBC 10.2 RBC 4.40 L Hgb 13.2 L Hct 38.8 L MCV 88.1 MCH 29.9 MCHC 33.9 RDW 14.7 Plt Count 389 Neut % (Auto) 70.3 Lymph % (Auto) 16.0 L [place] % (Auto) 10.1 Eos % (Auto) 3.3 Baso % (Auto) 0.3 Neut # (Auto) 7200 H Lymph # (Auto) 1600 [place] # (Auto) 1000 H Eos # (Auto) 300 Baso # (Auto) 0 Sodium 130 L Potassium 4.8 Chloride 101 Carbon Dioxide 26 BUN 31 H Creatinine 0.75 Estimated GFR > 60 BUN/Creatinine Ratio 41.3 H Glucose 97 Calcium 9.0 Magnesium 2.1 [facility] Medical History HTN (hypertension) ABPA (allergic bronchopulmonary aspergillosis) (Unknown) Allergic rhinitis (Unknown) Hyperlipemia (Unknown) Hemorrhoids (Unknown) Prostate cancer (1997) Kidney stones (07/2009) COPD (chronic obstructive pulmonary disease) (Unknown) Surgical History Hx of cholecystectomy (2007) Hx of appendectomy (2010) Hx of prostatectomy (1997) Hx of tonsillectomy (1954) Hx of hernia repair (2009) Hx of transurethral resection of prostate (1997) Social History household members: none Smoking Status: Never smoker alcohol intake: current substance use type: does not use Assessment & Plan Assessment & Plan narrative: 1. Metapneumovirus, present on admission and active. 2. COPD exacerbation, present on admission and active. 3. Acute hypoxic respiratory failure, present on admission and active. 4. Hypertension, present on admission and active. 5. Allergic bronchopulmonary aspergillosis, present on admission and stable. 6. Prostate cancer, present on admission and stable. PLAN:
[2024-01-18 07:43] VITALS: PULSE 69; RESP 18; O2SAT 92
[2024-01-18] MEDS: ALBUTEROL/IPRATROPIUM 3 ML AMPUL INH (07:43)
[2024-01-18] MEDS: BUDESONIDE 0.5 MG/2 ML NEB INH (07:43)
[2024-01-18 08:00] VITALS: BP 116/59; PULSE 92; RESP 20; TEMP 36.3; O2SAT 89
[2024-01-18] MEDS: DOXYCYCLINE HYCLATE 100 MG TABLET PO (09:11)
[2024-01-18] MEDS: DOCUSATE 100 MG CAPSULE PO (09:11)
[2024-01-18] MEDS: AMLODIPINE 5 MG TABLET 2.5 MG PO (09:11)
[2024-01-18] MEDS: ENOXAPARIN 40 MG/0.4 ML SYRINGE SUBCUT (09:12)
--- NOTE | 2024-01-18 10:12 | PT.IPTN ---
Current Diagnoses Human metapneumovirus as the cause of diseases classified elsewhere (01/12/24) Essential (primary) hypertension (01/12/24) Acute bronchitis due to other specified organisms (01/12/24) Chronic obstructive pulmonary disease, unspecified (01/12/24) Acute respiratory failure with hypoxia (01/12/24) Physical Therapy Treatment Note M2 PT-IP Current Condition Start: 01/17/24 12:17 Freq: NEEDED Status: Active Protocol: Document 01/17/24 12:18 MB (Rec: 01/17/24 13:00 MB [id number]) Physical Therapy Current Condition Current Condition Evaluation Date 01/17/24 Treatment Diagnosis COVID M3 PT-IP Subjective Start: 01/17/24 12:17 Freq: NEEDED Status: Active Protocol: Document 01/18/24 10:33 TS (Rec: 01/18/24 10:45 TS [id number]) Subjective Physical Therapy Visit Type Type Treatment Note Visit Start Time 10:12 Visit Stop Time 10:28 Number of W[employer]CRE[employer]PER[employer]OR Visits 1 Physical Therapy Visit Comments Patient Comments Pt found resting in bed, is agreeable to PT. M4 PT-IP Mobility and Gait Start: 01/17/24 12:17 Freq: NEEDED Status: Active Protocol: Document 01/18/24 10:33 TS (Rec: 01/18/24 10:45 TS [id number]) PT-Bed Mobility Assessment Supine to Sit Supine to Sit Independent Sit to Supine Sit to Supine Independent Scooting Scooting to Edge of Bed Independent PT-Transfer Assessment Sit to and From Stand Sit to and from Stand Independent Equipment Transfer Assistive Device None Orthotic/Prosthetic Devices or Brace: No Comments Mobility Comments Supine to sit Ind with HOB elevated. STS from bed with no AD Ind, pt is impulsive to stand before therapist is ready. He ambulated around the room ~60' with a normal gait. He performed steps x3 on step stool SBA with single rail. Pt was left back in bed, all needs met. Gait Assessment Gait Gait Assistance Required: Independent Distance (Feet) 60 Able to Maintain Weight Bearing Status Yes During Gait Assistive Devices Assistive Device None Orthotic/Prosthetic Devices or Brace: No Gait Deviations General Gait Pattern Decreased Feet Clearance, Flexed Trunk Factors Limiting Gait Function Factors Limiting Gait Function Poor Safety Awareness Stair Climbing Assessment Evaluation Level of Assist On Stairs Standby Assistance Devices Stair Climbing Assistive Devices Left Railing Technique/Endurance Stair Climbing Direction Ascend and Descend Stair Climbing Technique Step to Step Number of Steps Climbed 3 PT-Balance Assessment Sitting Balance and Reactions Static Sitting Balance Ability Good Dynamic Sitting Balance Ability Good Standing Balance and Reactions Static Standing Balance Ability Good Dynamic Standing Balance Ability Good Device Used None M5 PT-IP Objective Assessments Start: 01/17/24 12:17 Freq: NEEDED Status: Active Protocol: Document 01/17/24 12:18 MB (Rec: 01/17/24 13:00 MB [id number]) Orientation Orientation/Cognition Level of Alertness Alert Orientation Name,Age,Birthday,Month,Date, Year,Day of Week,Place, Situation Language Function Ability No Deficits Noted Safety Awareness Understands Safety Issues Memory Description No Deficits Noted Gross Range of Motion Upper Extremity ROM Assessment Within Functional Limits Lower Extremity ROM Assessment Within Functional Limits Strength Upper Extremity Strength Assessment Within Functional Limits Lower Extremity Strength Assessment Within Functional Limits Muscle Tone Muscle Tone WNL Yes M6 PT-IP Treatment Start: 01/17/24 12:17 Freq: NEEDED Status: Active Protocol: Document 01/18/24 10:33 TS (Rec: 01/18/24 10:45 TS [id number]) Physical Therapy Treatment Education Education Provided Safety M7 PT-IP Assessment and Plan Start: 01/17/24 12:17 Freq: NEEDED Status: Active Protocol: Document 01/18/24 10:33 TS (Rec: 01/18/24 10:45 TS [id number]) PT Summary Assessment and Plan Potential Rehabilitation Potential Good Summary Impairments Balance,Bed Mobility,Transfers ,Gait,Activity Tolerance Progress Towards Goals Progressing Toward Goals Assessment Summary Morales is making good progress with his mobility. He is Ind for all bed mobility and gait with no AD. He required SBA for stairs on step stool with use of single rail. He is impulsive with his movements, lacks safety awareness. PT is recommending home with assist and HHPT. Goals Bed Mobility Goal Independent Transfer Goal Independent Gait Goal Independent Gait Distance 100 Other Goals Pt will ascend and descend 2 steps with left rail and mod I . Use of LRAD as needed for gait Days to Meet Goals 6 Frequency of Treatment Frequency Of Treatment Once a Day Treatment Plan Physical Therapy Treatment Plan Bed Mobility Training,Transfer Training,Gait Training, Therapeutic Exercise,Balance Retraining,Discharge Planning Precautions Other Precautions Droplet Weight Bearing Status Weight Bearing Status Weight Bear as Tolerated Recommendations To Nursing Amount of Assist Needed Standby Assistance Discharge Recommendations PT Discharge Recommendations Home with Assistance,Home Health Other Discharge Recommendations Pt does not have assistance available at home except for neighbors Transportation Needs at Discharge Private Vehicle
--- NOTE | 2024-01-18 10:21 | CM.DPC ---
DCP Cont. Reviewed EMR and team rounds for status updates. Pt has been medically cleared for d/c today, and his bipap will be delivered to his home in the next 2-days. Met with pt at bedside to discuss discharge plan, he has his car here in the parking lot, and plans to drive himself home. Called his dtr and updated her re: d/c. No further DCP needs identified at this time.
--- NOTE | 2024-01-18 10:23 | P.DS_ITS ---
History of Present Illness History of Present Illness Chief complaint: Shortness of breath Narrative: 88 y/o with PMH of bulous emphysema, on Advair and DuoNeb, and history of pulmonary aspergilosis, presented with worsening shortness of breath and diagnosed with COPD exacerbation and metapneumoviral bronchitis. Hypoxemic, tachypneic. Leukocytosis. CXR w/o infiltrates with RLL bulae. Discharge Providers Provider Date of admission: 01/12/24 20:17 Discharge Date: 01/18/24 Primary care physician: Doctor David MD Consults: 01/17/24 10:12 Consult to Physical Therapy Evaluate & Treat Comment: Physician Instructions: Evaluate and Treat Discharge provider: Harrison Cochran MD Summary Hospital Course Discharge Diagnosis: 1. Metapneumovirus, present on admission and improved. 2. COPD exacerbation, present on admission and improved. 3. Acute hypoxic respiratory failure, present on admission and improved. 4. Hypertension, present on admission and active. 5. Allergic bronchopulmonary aspergillosis, present on admission and stable. 6. Prostate cancer, present on admission and stable. Hospital Course: The patient was admitted for COPD exacerbation and acute hypoxic respiratory failure in context of metapneumovirus infection. He was treated with bronchodilators and steroids and had slow improvement. He was also treated with a short course of doxycycline, 5 mg. This is given orally. On the day of discharge he was much improved but still had with the agree of hypoxia at but was open to home oxygen for a short period of time. He was evaluated for home oxygen with the following findings: He required 3 L of O2 with exertion to maintain sats of 90%. Required 1 L of oxygen at rest to maintain saturations of 90%. He was stable for discharge home with oxygen, steroids and antibiotics are now stopped. Referral was sent to get him in to see his primary care doctor, Dr. James, within the next 2 weeks. [facility] pulmonary group in [place]. Status at Discharge Cognitive/behavioral status at discharge: oriented Functional status at discharge: independent ambulation Overall status at discharge: patient is back to baseline Time Spent with Patient Time spent: Less than 30 minutes Exam Vital Signs (past 8 hours): - 01/18/24 07:43 01/18/24 08:00 Temperature 97.3 F L Pulse Rate 69 92 H Respiratory Rate 18 20 Blood Pressure 116/59 L Pulse Oximetry 92 89 L Oxygen Delivery Method Nasal Cannula Oxygen Flow Rate 0.5 1 Fraction of Inspired Oxygen 28 SaO2/FiO2 Ratio 332 Oxygen Delivery Method Nasal Cannula Oxygen Flow Rate 1 Narrative Exam Narrative: NAD, alert and oriented. Fluent speech. Lungs are clear, normal rate and effort. Minimal wheezing. Heart is regular, no murmur gallop or rub. Abdomen is soft, non distended. Extremities are free of edema. Objective Imaging Chest x-ray: Radiologist's impression: No focal pulmonary consolidations. Findings concerning for COPD. Bullous changes at the right base. Labs 01/18/24 05:30 01/18/24 05:30 Labs: Laboratory Results - last 24 hr 01/18/24 05:30 WBC 10.2 RBC 4.40 L Hgb 13.2 L Hct 38.8 L MCV 88.1 MCH 29.9 MCHC 33.9 RDW 14.7 Plt Count 389 Neut % (Auto) 70.3 Lymph % (Auto) 16.0 L [place] % (Auto) 10.1 Eos % (Auto) 3.3 Baso % (Auto) 0.3 Neut # (Auto) 7200 H Lymph # (Auto) 1600 [place] # (Auto) 1000 H Eos # (Auto) 300 Baso # (Auto) 0 Sodium 130 L Potassium 4.8 Chloride 101 Carbon Dioxide 26 BUN 31 H Creatinine 0.75 Estimated GFR > 60 BUN/Creatinine Ratio 41.3 H Glucose 97 Calcium 9.0 Magnesium 2.1 PFSH Medical History HTN (hypertension) ABPA (allergic bronchopulmonary aspergillosis) (Unknown) Allergic rhinitis (Unknown) Hyperlipemia (Unknown) Hemorrhoids (Unknown) Prostate cancer (1997) Kidney stones (07/2009) COPD (chronic obstructive pulmonary disease) (Unknown) Surgical History Hx of cholecystectomy (2007) Hx of appendectomy (2010) Hx of prostatectomy (1997) Hx of tonsillectomy (1954) Hx of hernia repair (2009) Hx of transurethral resection of prostate (1997) Social History household members: none Smoking Status: Never smoker alcohol intake: current substance use type: does not use Discharge Assessment & Plan Assessment and Plan Assessment: 1. Metapneumovirus, present on admission and improved. 2. COPD exacerbation, present on admission and improved. 3. Acute hypoxic respiratory failure, present on admission and improved. 4. Hypertension, present on admission and active. 5. Allergic bronchopulmonary aspergillosis, present on admission and stable. 6. Prostate cancer, present on admission and stable. Plan of Treatment: Discharge home with resumption of all preadmission medications. No further steroids or antibiotics. Pulmonary appointment within 1-2 weeks. Discharge Plan Discharge Plan Patient Disposition: Home Provider Discharge Comment: Stable for discharge home with home oxygen. Anticipate will be temporary. We will follow up with Pulmonary next 1-[address] James. Discharge orders & Medications Prescriptions: Continued irbesartan [Avapro] 150 mg tablet 150 mg PO DAILY Patient Comments: in am ipratropium-albuterol 0.5 mg-3 mg(2.5 mg base)/3 mL solution for nebulization 3 ml inhalation 4XD PRN (Reason: Shortness Of Breath Or Wheezing) fluticasone propion-salmeterol [Advair Diskus] 500 MCG/50 MCG blister with device 1 puff INH BIDRT Qty: 0 amlodipine 2.5 mg tablet 2.5 mg PO BEDTIME Patient Comments: takes in the evening Medication counseling provided by Pharmacist: No Follow up/Referrals: Harrison Cochran MD [Physician] - Doctor Hernandez MD [Primary Care Provider] - Sergo James MD [Physician] - (Needs hospital FU 1-2 weeks (COPD exacerbation and ABPA)) Discharge Health Status Multidrug resistant organism: No MDRO Diet/Activity/Treatments Diet: Diet as Tolerated Activity: As tolerated Oxygen: Home oxygen, 3 L with exertion, 1 L with rest. Skin/Wound/Dressing Care Report to your healthcare provider any signs of infection, such as:: chills, fever Visit Report/Discharge Packet Instructions: DI for Chronic Obstructive Pulmonary Disease, DI for Oxygen Therapy -- Adult Stand Alone Forms: Patient Portal/API Discharge Data Primary Care Provider: Doctor David
--- NOTE | 2024-01-18 14:21 | PC.NURSE ---
Dayshift: Pt provided education on COPD exacerbation/infection control/home O2 administration. Pt stated understanding and questions answered. PIV discontinued, all belongings with patient. Pt escorted via wheelchair and O2 canister/trolley with PCT Michael to POV in parking lot. Pt plans to drive self home.
== END 2024-01-18 13:15 | disposition home or self-care (01) | DRG 190 ==
LOC: ED 20:18 → AC 20:32
PROVIDERS: Emergency Medicine; Internal Medicine; Admitting Provider Internal Medicine; Emergency Provider Emergency Medicine; Visit Provider Internal Medicine
DX: J44.0 Chronic obstructive pulmonary disease with (acute) lower respiratory infection (principal); J96.01 Acute respiratory failure with hypoxia; B44.81 Allergic bronchopulmonary aspergillosis; J20.8 Acute bronchitis due to other specified organisms; J44.1 Chronic obstructive pulmonary disease with (acute) exacerbation; B97.81 Human metapneumovirus as the cause of diseases classified elsewhere; I10 Essential (primary) hypertension; C61 Malignant neoplasm of prostate
CPT/HCPCS: 36415; 71045; 80048; 80053; 82550; 83605; 83735; 83880; 84145; 84484; 85025; 85610; 85730; 87040; 87633; 93005; 94618; 94640; 94760; 94762; 96374; 97161; 97530; 99285; J1650; J2919; J7613

== ENCOUNTER → 2024-03-11 08:14 | Outpatient (CLI) | payer MEDICARE, OTHER, SELFPAY ==
[2024-01-12 21:55] VITALS: BMI 24.3
== END ==
PROVIDERS: Referring Provider Internal Medicine; Visit Provider Internal Medicine
DX: J45.909 Unspecified asthma, uncomplicated (principal); R94.2 Abnormal results of pulmonary function studies
CPT/HCPCS: 94010; 94726; 94729

== ENCOUNTER → 2024-08-05 10:16 | Outpatient (CLI) | payer MEDICARE, OTHER, SELFPAY ==
[2024-01-12 21:55] VITALS: BMI 24.3
[2024-08-05 11:15] LABS: Add Manual Diff / Slide Review NO; Basophils Absolute Auto 0 /uL (0-100); Basophils Percent Auto 0.5 % (0-2); Eosinophils Absolute Auto 300 /uL (0-450); Eosinophils Percent Auto 4.9 % (2-4); Hematocrit 42.2 % (41-53); Hemoglobin 14.2 g/dL (13.5-17.5); Lymphocytes Absolute Auto 900 /uL (1100-4500); Mean Corpuscular HGB Conc 33.6 % (30-36); Mean Corpuscular Hemoglobin 30.2 PG (26-34); Mean Corpuscular Volume 89.7 fL (80-100); Monocytes Absolute Auto 500 /uL (0-900); Monocytes Percent Auto 9.4 % (3-14); Neutrophils Absolute Auto 3800 /uL (1500-7000); Neutrophils Percent Auto 68.2 % (50-75); Platelet Count 248 X10^3/uL (150-400); White Blood Cell Count 5.5 X10^3/uL (4.5-11.0)
[2024-08-07 22:07] LABS: Immunoglobulin E 1592 IU/mL (6-495)
== END ==
PROVIDERS: PCP Physician Assistant; Referring Provider Internal Medicine; Visit Provider Internal Medicine
DX: J45.50 Severe persistent asthma, uncomplicated (principal); B44.81 Allergic bronchopulmonary aspergillosis
CPT/HCPCS: 36415; 82785; 85025; 86003

== ENCOUNTER → 2024-12-10 14:48 | Outpatient (CLI) | payer MEDICARE, OTHER, SELFPAY ==
[2024-01-12 21:55] VITALS: BMI 24.3
== END ==
PROVIDERS: PCP Physician Assistant; Referring Provider Internal Medicine; Visit Provider Internal Medicine
DX: J45.50 Severe persistent asthma, uncomplicated (principal); B44.81 Allergic bronchopulmonary aspergillosis
CPT/HCPCS: 36415; 82785; 86003

== ENCOUNTER → 2024-12-26 16:03 | Outpatient (CLI) | payer MEDICARE, OTHER, SELFPAY ==
[2024-01-12 21:55] VITALS: BMI 24.3
== END ==
LOC: LAB 16:04
PROVIDERS: PCP Physician Assistant; Visit Provider Urology
DX: R39.9 Unspecified symptoms and signs involving the genitourinary system (principal)
CPT/HCPCS: 87086

== ENCOUNTER → 2024-12-30 14:44 | Outpatient (CLI) | payer MEDICARE, OTHER, SELFPAY ==
[2024-01-12 21:55] VITALS: BMI 24.3
== END ==
PROVIDERS: PCP Physician Assistant; Referring Provider Physician Assistant; Visit Provider Internal Medicine
DX: R06.02 Shortness of breath (principal); J45.50 Severe persistent asthma, uncomplicated; B44.81 Allergic bronchopulmonary aspergillosis; R94.2 Abnormal results of pulmonary function studies; J98.8 Other specified respiratory disorders
CPT/HCPCS: 94060; 94726; 94729

== ENCOUNTER → 2025-01-05 16:14 | Outpatient (CLI) | payer MEDICARE, OTHER, SELFPAY ==
[2024-01-12 21:55] VITALS: BMI 24.3
[2025-01-05 16:53] LABS: Estimated Glomerular Filt Rate 55 mL/min (>60)
== END ==
PROVIDERS: PCP Physician Assistant; Referring Provider Urology; Visit Provider Urology
DX: C61 Malignant neoplasm of prostate (principal)
CPT/HCPCS: 36415; 82565

== ENCOUNTER → 2025-01-07 10:34 | Outpatient (CLI) | payer MEDICARE, OTHER, SELFPAY ==
[2024-01-12 21:55] VITALS: BMI 24.3
--- NOTE | 2025-01-07 10:35 | DI.CT.S_ITS ---
PROCEDURE: CT CHEST ABD PEL W CON INDICATIONS: 89 y/o M w/ h/o prostate cancer s/p prostatectomy, elev PSA TECHNIQUE: After the administration of intravenous contrast, 5 mm thick sections acquired from the lung apices to the symphysis. 5 mm coronal and sagittal reformats were performed, with additional 7 mm MIP reformats through the lungs. For radiation dose reduction, the following was used: automated exposure control, adjustment of mA and/or kV according to patient size. COMPARISON: None. FINDINGS: Image quality: Excellent. CHEST: Lower Neck: No enlarged lymph nodes. Thyroid: No thyroid nodules which require sonographic follow up, per consensus guidelines. Axillae: No enlarged lymph nodes. Chest Wall: Unremarkable. Lungs and Pleura: No pneumothorax or pleural effusions. Mild endobronchial secretions. No suspicious pulmonary nodules. Pleural parenchymal bands in the lung bases. Heart: Heart size is normal. No pericardial effusion. Thoracic Vessels: Dilated pulmonary arteries. Mediastinum and Lauren: No enlarged lymph nodes. Esophagus: No wall thickening. No hiatal hernia. ABDOMEN: Liver: No solid mass. Vascular shunt in segment 2 of the liver. Mild atrophy of the right hepatic lobe, nonspecific. Patent portal vein. Gallbladder: Absent. Biliary ducts: No biliary dilation. Pancreas: No ductal dilation. Spleen: Size is within normal limits. Adrenal Glands: No adrenal nodules. Kidneys and Ureters: No hydronephrosis. No solid mass. No complex renal cystic lesion which requires follow up. A few nonobstructing left-sided nephrolithiasis, largest measuring 1.1 cm. Stomach and Bowel: Normal colonic caliber, without significant wall thickening. Colonic diverticulosis without evidence of diverticulitis. Peritoneum: No abnormal intraperitoneal fluid. No free air. Ventral Wall: No significant ventral hernia. Abdominal Nodes: No retroperitoneal or mesenteric adenopathy by size criteria. Vessels: Aorta and inferior vena cava are normal in size. Ectatic internal iliac arteries. PELVIS: Pelvic Organs: Prostatectomy. Bladder: No bladder wall thickening, accounting for underdistention. Pelvic Nodes: No enlarged lymph nodes. Miscellaneous: Small left indirect inguinal hernia containing fat. Bones: No aggressive osseous abnormality. Moderate convex left scoliosis centered at L2. Chronic compression deformity of the T11 vertebral body, without endplate retropulsion. IMPRESSION: Prostatectomy. No lymphadenopathy or aggressive osseous abnormality. Consider PMSA PET-CT in the setting of biochemical recurrence. Dilated pulmonary arteries, most consistent with pulmonary hypertension. Dictated by: Tayo Ferrara M.D. on 01/07/2025 at 12:04 Approved by: Tayo Ferrara M.D. on 01/07/2025 at 12:14
== END ==
PROVIDERS: PCP Physician Assistant; Referring Provider Urology; Visit Provider Urology
DX: C61 Malignant neoplasm of prostate (principal); Z90.79 Acquired absence of other genital organ(s)
CPT/HCPCS: 71260; 74177; Q9967

== ENCOUNTER → 2025-02-06 10:09 | Outpatient (CLI) | payer MEDICARE, OTHER, SELFPAY ==
[2024-01-12 21:55] VITALS: BMI 24.3
--- NOTE | 2025-02-06 10:13 | DI.NM.S_ITS ---
PROCEDURE: NM BONE SCAN WHOLE BODY RADIOPHARMACEUTICAL: 22 mCi Tc-99m MDP IV. INDICATIONS: 89 y/o M w/ h/o prostate cancer s/p prostatectomy, elev PSA TECHNIQUE: Delayed whole-body scintigrams were obtained approximately 3-4 hours after intravenous injection of radiotracer. Anterior and posterior views were acquired from vertex to feet. Additional left and right oblique views of the pelvis and chest were obtained. COMPARISON: [facility], CT, CT CHEST ABD PEL W CON, 01/07/2025, 10:56. FINDINGS: Radiotracer excretion is seen in the urinary system. Upper and lower extremity degenerative changes are present. There also mild degenerative changes with curvature in the lower lumbar spine. Moderate focal uptake is seen in the left anterior lower ribs, 2 in a row. IMPRESSION: Moderate focal uptake in the left anterior ribs, 2 in a row. Orientation and configuration favors post traumatic etiology however attention on follow-up is suggested. No other definite suspicious focus of radiotracer uptake to suggest osteoblastic metastasis. Spinal and extremity degenerative areas of uptake are present. Dictated by: Chris Toscano M.D. on 02/09/2025 at 9:36 Approved by: Chris Toscano M.D. on 02/09/2025 at 9:38
== END ==
LOC: NUCM 10:11
PROVIDERS: PCP Physician Assistant; Referring Provider Urology; Visit Provider Urology
DX: C61 Malignant neoplasm of prostate (principal)
CPT/HCPCS: 78306; A9503

== ENCOUNTER → 2025-02-07 10:42 | Outpatient (CLI) | payer MEDICARE, OTHER, SELFPAY ==
[2024-01-12 21:55] VITALS: BMI 24.3
--- NOTE | 2025-02-07 10:44 | DI.CT.S_ITS ---
PROCEDURE: CT SINUS SCREEN WO CON INDICATIONS: MAX SINUS MASS,CHRONIC PANSINUSITIS TECHNIQUE: Noncontrast 3.0 mm axial images acquired from the frontal sinuses to the mid- sella, with coronal and sagittal reformats. For radiation dose reduction, the following was used: automated exposure control, adjustment of mA and/or kV according to patient size. COMPARISON: Outside Film, CT, CT FACIAL BONES WITHOUT CONTRAST, 10/21/2024, 14:25. FINDINGS: Image quality: Diagnostic Maxillary Sinuses: Mild mucosal thickening. Peripherally ossified lesion is seen within the sinus with mild hyperostosis. The lesion measures 2.5 x 1.8 cm. There is an adjacent tooth Ethmoid Air Cells: Mild mucosal thickening Sphenoid Sinuses: Clear Frontal Sinuses: Clear Ostiomeatal Complexes: No obstruction Miscellaneous: Visualized intra-orbital contents are normal. No juan bullosa or paradoxical turbinate curvature. Rightward nasal septum deviation. Mastoids appear clear There are vascular calcifications. Cervical spondylotic changes partially seen IMPRESSION: Calcified lesion within the right maxillary sinus adjacent to a tooth. ENT follow-up is suggested. Other findings above. Dictated by: Chris Toscano M.D. on 02/08/2025 at 1:54 Approved by: Chris Toscano M.D. on 02/08/2025 at 1:58
== END ==
LOC: CT 10:43
PROVIDERS: PCP Physician Assistant; Referring Provider Otolaryngology; Visit Provider Otolaryngology
DX: J32.4 Chronic pansinusitis (principal); J34.89 Other specified disorders of nose and nasal sinuses
CPT/HCPCS: 70486

== ENCOUNTER → 2025-06-08 07:16 | Outpatient (CLI) | payer MEDICARE, OTHER, SELFPAY ==
[2025-02-24 15:03] VITALS: BMI 24.3
[2025-06-08 09:09] LABS: Prostate Specific Antigen 0.300 ng/mL (0.10-4.00)
== END ==
PROVIDERS: PCP Physician Assistant; Referring Provider Physician Assistant; Visit Provider Urology
DX: C61 Malignant neoplasm of prostate (principal)
CPT/HCPCS: 36415; 84153

== ENCOUNTER → 2025-06-17 08:54 | Outpatient (CLI) | payer MEDICARE, OTHER, SELFPAY ==
[2025-02-24 15:03] VITALS: BMI 24.3
== END ==
PROVIDERS: PCP Physician Assistant; Visit Provider Urology
DX: C61 Malignant neoplasm of prostate (principal); R39.9 Unspecified symptoms and signs involving the genitourinary system
CPT/HCPCS: 51798; 81002; 87086; 99213